=== PATIENT | male | born 1950 | race Caucasian/White ===

== ENCOUNTER 2023-09-21 11:13 | Emergency (ER) | payer MEDICARE, OTHER, SELFPAY ==
[2023-09-21 11:27] VITALS: BP 121/71
--- NOTE | 2023-09-21 14:15 | ED.GENMED ---
History of Present Illness
General
Chief Complaint: Head Injury
Source: patient
Exam Limitations: none
Time Seen by Provider: 09/21/23 12:03
Nursing documentation reviewed up to this point in time: agreed with
Travel History
Have you had any contact with someone who has COVID-19?: No
Do you have any symptoms of coronavirus? Fever > 100 degrees, chills, cough, shortness of breath, sore throat, loss of taste or smell, muscle aches, or headache?: No
History of Present Illness
History of Present Illness:
73-year-old male with past medical history of A-fib currently on Eliquis, hypertension, COPD presenting to the emergency department today with concerns of a trip and fall falling backward hitting his elbows back of the head and low back earlier
today. Denies loss of consciousness denies numbness weakness does have some pain to the elbows as well as low back no headache no neck pain.
Past History
Past History
ED Past Medical History: Arrthythmia and HTN
ED Past Surgical History: Orthopedic (Right knee replacement)
Patient has exhibited threatening behavior?: No
PSI?: No
Social History
Tobacco: Smoker
Alcohol: Occasional
Drug: None
Personal:
Living: with family
Employment: Employed
Family History
Family History: Negative CAD
Review of Systems
Review of Systems
Allergies reviewed?: Yes
All Other Systems: ROS reviewed and negative except as documented in HPI and ROS
Phy Exam
Physical Exam
Physical Exam:
GENERAL: Alert , in no apparent distress
EYE: pupils equal and reactive
NECK: Supple, no significant adenopathy.
ENT: o/p clr, mmm.
CARDIAC: Regular rate and rhythm .
LUNGS: Clear breath sounds bilaterally, no acute respiratory distress, no wheezes/rales/rhonchi
ABDOMEN: Soft, without focal tenderness, no r/g, no cvat
NEUROLOGICAL: Alert and oriented, no focal neuro deficits 5 out of 5 upper and lower extremity strength
SKIN: Warm and dry, skin intact.
MUSCULOSKELETAL: Mild pain to the sacral region on the back otherwise no flank pain no CVA tenderness. No edema, well perfused.
PSYCH: Normal and appropriate interaction.
Course
Orders/Labs/Results
Orders:
Orders
09/21/23 11:31
CT Head W/o Iv Contrast Urgent
Comment:
Reason For Exam: head injury 09/20, on Eliquis
09/21/23 12:28
Lumbar Spine, 2 or 3 View [CR Lumbar Spine 2 Or 3 Views] Urgent
Comment:
Reason For Exam: low back pain afet fall
Sacrum/Coccyx 2 View CR [CR Sacrum/coccyx Min 2 View] Urgent
Comment:
Reason For Exam: lbp pain after fall
Vital Signs
Initial and Last Documented VS:
Initial Vital Signs
Temp Pulse Resp BP Pulse Ox
97.7 F 86 18 121/71 95
09/21/23 11:27 09/21/23 11:27 09/21/23 11:27 09/21/23 11:27 09/21/23 11:27
Last Documented Vital Signs
Temp Pulse Resp BP Pulse Ox
97.7 F 86 18 121/71 95
09/21/23 11:27 09/21/23 11:27 09/21/23 11:27 09/21/23 11:27 09/21/23 11:27
MDM/Problems Addressed
MDM/Problems Addressed:
74-year-old male presenting to the emergency department today with concerns of low back discomfort elbow discomfort as well as some mild head pain after trying to sit missing his rollator and hitting the low back elbows and back of the head. Did
not lose consciousness denies numbness denies neck pain mainly with pain and low back. X-ray without emergent findings CT head negative. Good range of motion and strength of the upper extremities. No evidence of acute injury in that regard.
Patient appears stable for outpatient management of likely soft tissue injury. Return precautions given.
*Critical Care Note
Total Time (30-74mins, 75-104mins- exclusive of procedures): Not Applicable
ED Attending Note
-
Portions of this chart may have been created with voice recognition software.� Occasional wrong word or��sound alike� substitutions may have occurred due to the inherent limitations of voice recognition software.
Discharge Plan
Departure
Patient Disposition: Home (Routine Discharge)
Date of Disposition: 09/21/23
Time of Disposition: 14:16
Patient with high blood pressure during this ER visit?: No
Condition: Good
Covid-19: Not Applicable
Discharge Problem:
Fall, Low back pain
Instructions: Wound Care (DC)
Prescriptions:
No Action
atorvastatin [Lipitor] 80 mg Tablet
80 mg PO QPM
aspirin 81 mg Tablet,Delayed Release (Dr/Ec)
81 mg PO DAILY
amitriptyline 25 mg Tablet
25 mg PO HS
magnesium oxide 400 mg (241.3 mg magnesium) Tablet
420 mg PO DAILY
gabapentin 300 mg Capsule
900 mg PO TID
Eliquis 5 mg Tablet
5 mg PO BID
empagliflozin 25 mg Tablet
12.5 mg PO DAILY
furosemide 40 mg Tablet
40 mg PO DAILY Qty: 30 0RF
nicotine 14 mg/24 hr Patch 24 Hour
14 mg transdermal DAILY Qty: 30 0RF
lidocaine [Aspercreme (lidocaine)] 4 % Adhesive Patch,Medicated
1 patch topical HS Qty: 30 0RF
metoprolol succinate 50 mg Tablet Extended Release 24 Hr
50 mg PO DAILY Qty: 30 0RF
sotalol 80 mg Tablet
80 mg PO Q12H Qty: 60 0RF
duloxetine 20 mg Capsule,Delayed Release(Dr/Ec)
20 mg PO DAILY Qty: 30 0RF
oxycodone 5 mg tablet
5 mg PO Q8H PRN (Reason: Pain) Qty: 14 0RF
Referrals:
Mariah Langley CRNP [Family Provider] -
Activity Restrictions/Additional Instructions:
You came to the emergency department today with concerns after a fall. Here you had reassuring evaluation with normal imaging of the low back and head. Please rest and ice over the next few days as symptoms will hopefully improve. Return to the
emergency department for any worsening, new or concerning symptoms.
Interventions
Interventions:
*General Assessment Last Done: 09/21/23 11:27
*Neglect/Abuse Screening Last Done: 09/21/23 12:31
*ED COVID-19 Vaccine History Last Done: 09/21/23 11:27
ED- Neurological Assessment Last Done: 09/21/23 12:30
ED-Skin Assessment Last Done: 09/21/23 12:30
[2023-09-21 14:33] VITALS: BP 161/87
== END 2023-09-21 14:34 | disposition home or self-care (01) ==
LOC: EMR 11:13
PROVIDERS: EMERGENCY PHYSICIAN Emergency Medicine; FAMILY PHYSICIAN Nurse Practitioner
DX: M54.50 Low back pain, unspecified (principal); S09.90XA Unspecified injury of head, initial encounter; W19.XXXA Unspecified fall, initial encounter; F17.200 Nicotine dependence, unspecified, uncomplicated; Z79.01 Long term (current) use of anticoagulants
CPT/HCPCS: 99284; 70450; 72100; 72220

== ENCOUNTER 2024-01-12 08:45 | Emergency (ER) | payer MEDICARE, OTHER, SELFPAY ==
[2024-01-12 08:46] VITALS: BP 169/96
[2024-01-12 09:17] VITALS: BP 163/111
--- NOTE | 2024-01-12 09:18 | ED.GENMED ---
History of Present Illness
General
Chief Complaint: Breathing Problem
Source: patient and spouse
Exam Limitations: none
Time Seen by Provider: 01/12/24 08:54
Nursing documentation reviewed up to this point in time: agreed with
Travel History
Have you had any contact with someone who has COVID-19?: No
Do you have any symptoms of coronavirus? Fever > 100 degrees, chills, cough, shortness of breath, sore throat, loss of taste or smell, muscle aches, or headache?: No
History of Present Illness
History of Present Illness:
73-year-old male with a past medical history of hypertension, atrial fibrillation, COPD who presents to the emergency room with his for evaluation of worsening lower extremity edema and shortness of breath. Patient reports onset of symptoms
couple days ago and they have been constant and worsening since then. He reports increased swelling in both legs along with some weeping from superficial wounds on the left leg. He says that he has had increased shortness of breath particular with
exertion and his notes that she has noticed conversational dyspnea. Denies any chest pain. He denies any significant coughing. Denies any fevers or chills. He denies any GI issues. He denies any other complaints. He is on Eliquis for his
atrial fibrillation also takes Lasix reports compliance with all medication.
Past History
Past History
ED Past Medical History: Arrthythmia and HTN
ED Past Surgical History: Orthopedic (Right knee replacement)
Patient has exhibited threatening behavior?: No
PSI?: No
Social History
Tobacco: Smoker
Alcohol: Occasional
Drug: None
Personal:
Living: with family
Employment: Employed
Family History
Family History: Negative CAD
Review of Systems
Review of Systems
All Other Systems: ROS reviewed and negative except as documented in HPI and ROS
Constitutional: Denies fever or chills
Respiratory: Reports trouble breathing; Denies cough
Cardiac: Denies chest pain, diaphoresis or palpitations
ABD/GI: Denies abdominal pain, nausea, vomiting or diarrhea
: Denies flank pain
Musculoskeletal: Reports edema
Neurological: Denies dizzy or headache
Phy Exam
Physical Exam
Physical Exam:
General: Awake, alert, oriented x3; no acute distress
Head: Normocephalic, atraumatic
Eyes: Conjunctiva normal
Throat: Airway intact, handling secretions
Neck: Trachea midline, no JVD
Lungs: Normal respiratory rate, normal pulse ox, normal work of breathing; faint scattered wheezing
Heart: Tachycardic with ostensibly regular rhythm, no murmurs, gallops, or rubs
Abd: Soft, non distended, nontender
Neuro: No gross deficits
Skin: Minor superficial ulcerations on left anterior hall; rim of erythema around left anterior hall ulcer and some slight warmth but no induration or crepitus; chronic venous stasis changes in the legs with some erythema
Extremities: +2 pitting edema bilateral lower extremities; extremities are warm and well-perfused
Scores
Heart Failure Risk
Heart Failure Risk Score: Not Applicable
Heart Score for Chest Pain Patients
STEMI patient?: Not applicable
Withdrawal Assessment of Alcohol
Withdrawal Assessment Completed?: Not applicable
Course
Orders/Labs/Results
Orders:
Orders
01/12/24 08:56
Electrocardiogram (*1) Urgent
Reason for Study: Shortness of Breath
EKG- Treatment ONCE
CR Chest - 2 Views Urgent
Comment:
Reason For Exam: sob
01/12/24 09:18
Complete Blood Count/With Diff Urgent
Comprehensive Metabolic Panel Urgent
NT-proBNP Urgent
01/12/24 09:47
Electrocardiogram (*1) Urgent
Reason for Study: Shortness of Breath
Other Reason for Exam: repeat
01/12/24 09:48
EKG- Treatment ONCE
01/12/24 10:43
Ipratropium/Albuterol Sulfate [Duoneb] 3 ml INH R NOW ONE
MethylPREDNISolone PF [Solu-Medrol Pf] 125 mg IV NOW STA
Abnormal Lab Results
01/12/24
09:18
WBC 11.1 H 10^3/uL
(4.8-10.8)
RDW 15.4 H %
(11.5-14.5)
MPV 10.7 H fL
(7.4-10.4)
Abs Immat Gran (auto) 0.1 H 10^3/uL
(0-0.05)
Absolute Neuts (auto) 9.1 H 10^3/uL
(1.4-6.5)
Absolute Lymphs (auto) 0.9 L 10^3/uL
(1.2-3.4)
Absolute Monos (auto) 0.8 H 10^3/uL
(0.1-0.6)
Neutrophils % 82.3 H %
(42.2-75.2)
Lymphocytes % 8.0 L %
(20.5-51.1)
BUN 24 H mg/dl
(9-20)
Glucose 123 H mg/dl
(70-99)
Alkaline Phosphatase 138 H U/L
(38-126)
01/12/24 09:18
01/12/24 09:18
Vital Signs
Initial and Last Documented VS:
Initial Vital Signs
Temp Pulse Resp BP Pulse Ox
36.5 C 110 20 169/96 95
01/12/24 08:46 01/12/24 08:46 01/12/24 08:46 01/12/24 08:46 01/12/24 08:46
Last Documented Vital Signs
Temp Pulse Resp BP Pulse Ox
36.5 C 108 11 131/92 93
01/12/24 08:46 01/12/24 10:30 01/12/24 10:30 01/12/24 10:22 01/12/24 10:30
MDM/Problems Addressed
Differential Diagnosis Includes:
Leg swelling: CHF exacerbation, dependent edema, cellulitis, DVT/PE less likely as patient is on Eliquis noncompliant
Shortness of breath: CHF exacerbation, COPD exacerbation, pneumonia, PE less likely as above
MDM/Problems Addressed:
73-year-old male with history as above presents for evaluation of worsening leg swelling and shortness of breath over the past few days. Also having some weeping from his legs. Vital signs significant for hypertension and tachycardia. Physical
exam as above. Will place an IV check labs including a CBC and a CMP, proBNP. Will check chest x-ray and EKG. Monitor closely reassess after the above.
Labs reviewed: CBC shows marginal leukocytosis to 11.1; CMP no clinically significant abnormalities. BNP is slightly elevated at 830. Chest x-ray shows no pulmonary edema or other acute pathology. While he does have a slight elevation of his BNP
he has no edema on his chest x-ray, no JVD�somewhat lower suspicion for acute CHF or if this is acute CHF likely very mild. He does have some faint scattered wheezing and a known history of COPD and continues to smoke a pack a day�suspect at this
point COPD is more likely because of his increased shortness of breath will treat with a steroid and DuoNeb. His leg swelling could be dependent edema, very mild CHF, or an early cellulitis although suspect this is somewhat less likely given
symmetric swelling and absence of wounds on the right leg. Nevertheless I do not think it would be unreasonable to cover him with short course of antibiotics in case there is a developing cellulitis in his leg.
Patient is feeling better after DuoNeb and steroid. Will plan to treat for COPD exacerbation with few days of steroids and albuterol which he has at home. Will cover with short course of antibiotics as above. I also advised him to take an extra
dose of his diuretic at home for the next 2 days to help with leg swelling in case this is early CHF. He has a follow-up appointment this Thursday and will be reassessed at that point. I think he is stable for discharge with close outpatient
follow-up plan. He is very comfortable with this as well. We spoke about return precautions and all questions were answered.
Chronic conditions affecting care:
Atrial fibrillation, hypertension
Acute Exacerbation and/or Progression of Chronic Illness:
Acutely hypertensive
Acute Exacerbation and/or Progression of Chronic Illness: HTN
*Radiology
Radiology exam reviewed: preliminary read by ED provider and radiology read reviewed
*Pulse Oximetry
Patient hypoxic: no
*Critical Care Note
Total Time (30-74mins, 75-104mins- exclusive of procedures): Not Applicable
Data Reviewed
Review of Other/Old Records Reveals: Labs and Records
Source: patient and spouse
ED Attending Note
-
Portions of this chart may have been created with voice recognition software.� Occasional wrong word or��sound alike� substitutions may have occurred due to the inherent limitations of voice recognition software.
Discharge Plan
Departure
Prescriptions:
No Action
magnesium oxide 400 mg (241.3 mg magnesium) Tablet
420 mg PO DAILY
furosemide 40 mg Tablet
40 mg PO DAILY Qty: 30 0RF
duloxetine 20 mg Capsule,Delayed Release(Dr/Ec)
20 mg PO DAILY Qty: 30 0RF
metformin 500 mg Tablet
500 mg PO BID
nicotine (polacrilex) 2 mg Gum
2 mg BUCCAL Q2H PRN (Reason: smoking urge)
capsaicin 0.025 % Cream
1 applic TOPICAL QID PRN (Reason: .as directed)
pregabalin 75 mg Capsule
75 mg PO TID
sacubitril-valsartan 97-103 mg Tablet
1 tab PO BID
Referrals:
Mariah Langley CRNP [Family Provider] -
Interventions
Interventions:
*Risk Screen - Suicide Last Done: 01/12/24 08:46
*General Assessment Last Done: 01/12/24 08:46
*Neglect/Abuse Screening Last Done: 01/12/24 08:46
ED- Fall Risk Assessment Last Done: 01/12/24 09:48
*ED COVID-19 Vaccine History Last Done: 01/12/24 08:55
ED- Cardiac Assessment Last Done: 01/12/24 09:09
ED- Pulmonary Assessment Last Done: 01/12/24 09:09
ED-Skin Assessment Last Done: 01/12/24 09:09
Discharge Date and Time
Print Language: UKRAINIAN
[2024-01-12 09:30] LABS: % Eosinophils 0.9 % (0-6); % Immature Granulocytes 0.5 % (0-0.5); % Monocytes 7.3 % (1.7-9.3); % Neutrophils 82.3 % (42.2-75.2); Absolute Basophils 0.1 10^3/uL (0-0.2); Absolute Eosinophils 0.1 10^3/uL (0-0.7); Absolute Immature Granulocytes 0.1 10^3/uL (0-0.05); Absolute Lymphocytes 0.9 10^3/uL (1.2-3.4); Absolute Monocytes 0.8 10^3/uL (0.1-0.6); Absolute Neutrophils 9.1 10^3/uL (1.4-6.5); Hemoglobin 15.6 g/dL (13.0-18.0); Mean Corp Hgb Conc. 33.2 g/dL (33.0-37.0); Mean Corpuscular Hgb 30.2 pg (27.0-31.0); Mean Corpuscular Volume 91.1 fL (80.0-94.0); Mean Platelet Volume 10.7 fL (7.4-10.4); Nucleated Red Blood Cells % 0 % (-); Platelet Count 242 10^3/uL (130-400); Red Blood Cell Count 5.16 10^6/uL (4.70-6.10); Red Cell Dist. Width 15.4 % (11.5-14.5); White Blood Cell Count 11.1 10^3/uL (4.8-10.8)
[2024-01-12 09:46] LABS: ALT (SGPT) 16 U/L (0-50); AST (SGOT) 19 U/L (17-59); Albumin 3.5 g/dl (3.5-5.0); Alkaline Phosphatase 138 U/L (38-126); Blood Urea Nitrogen 24 mg/dl (9-20); Calcium 8.8 mg/dl (8.4-10.2); Carbon Dioxide 28 mmol/L (22-30); Chloride 105 mmol/L (98-107); Glucose 123 mg/dl (70-99); Potassium 3.9 mmol/L (3.5-5.1); Sodium 141 mmol/L (135-145); Total Bilirubin 0.7 mg/dl (0.2-1.3); Total Protein 6.7 g/dl (6.3-8.2); eGFR > 60.00
[2024-01-12 09:54] LABS: NT-proBNP 830 pg/ml
[2024-01-12 10:22] VITALS: BP 131/92
[2024-01-12] MEDS: DUONEB 3 ML INH (10:46)
[2024-01-12] MEDS: SOLU-MEDROL PF 125 MG IV (10:47)
[2024-01-12 11:01] VITALS: BP 123/87
[2024-01-12] MEDS: KEFLEX 500 MG PO (11:32)
== END 2024-01-12 12:10 | disposition home or self-care (01) ==
LOC: EMR 08:45
PROVIDERS: EMERGENCY PHYSICIAN Emergency Medicine; FAMILY PHYSICIAN Nurse Practitioner
DX: R60.0 Localized edema (principal); R06.02 Shortness of breath; I10 Essential (primary) hypertension; I48.91 Unspecified atrial fibrillation; J44.9 Chronic obstructive pulmonary disease, unspecified; F17.210 Nicotine dependence, cigarettes, uncomplicated; Z79.01 Long term (current) use of anticoagulants; Z96.651 Presence of right artificial knee joint; Z91.030 Bee allergy status
CPT/HCPCS: 99285; 96374; 94640; 71046; 80053; 83880; 85025; 93005

== ENCOUNTER 2024-08-18 21:02 | Inpatient (IN) | payer MEDICARE, OTHER, SELFPAY ==
[2024-08-18] VITALS (8 sets, daily range): BP systolic 151–167; BP diastolic 98–119; BMI 35.8
[2024-08-18 15:36] LABS: % Basophils 0.7 % (0-2); % Eosinophils 0.8 % (0-6); % Immature Granulocytes 0.3 % (0-0.5); % Lymphocytes 10.9 % (20.5-51.1); % Monocytes 7.2 % (1.7-9.3); % Neutrophils 80.1 % (42.2-75.2); Absolute Basophils 0.1 10^3/uL (0-0.2); Absolute Eosinophils 0.1 10^3/uL (0-0.7); Absolute Lymphocytes 1.2 10^3/uL (1.2-3.4); Absolute Monocytes 0.8 10^3/uL (0.1-0.6); Absolute Neutrophils 8.6 10^3/uL (1.4-6.5); Hematocrit 50.3 % (39.0-52.0); Hemoglobin 16.5 g/dL (13.0-18.0); Mean Corp Hgb Conc. 32.8 g/dL (33.0-37.0); Mean Corpuscular Hgb 30.3 pg (27.0-31.0); Mean Corpuscular Volume 92.5 fL (80.0-94.0); Mean Platelet Volume 10.5 fL (7.4-10.4); Nucleated Red Blood Cells % 0 % (-); Platelet Count 237 10^3/uL (130-400); Red Blood Cell Count 5.44 10^6/uL (4.70-6.10); Red Cell Dist. Width 15.6 % (11.5-14.5); White Blood Cell Count 10.8 10^3/uL (4.8-10.8)
[2024-08-18 15:46] LABS: ALT (SGPT) 22 U/L (0-50); AST (SGOT) 21 U/L (17-59); Albumin 4.1 g/dl (3.5-5.0); Alkaline Phosphatase 160 U/L (38-126); Blood Urea Nitrogen 26 mg/dl (9-20); Calcium 8.7 mg/dl (8.4-10.2); Carbon Dioxide 25 mmol/L (22-30); Chloride 103 mmol/L (98-107); Glucose 109 mg/dl (70-99); Potassium 4.1 mmol/L (3.5-5.1); Sodium 140 mmol/L (135-145); Total Bilirubin 0.7 mg/dl (0.2-1.3); Total Protein 7.4 g/dl (6.3-8.2); eGFR > 60.00
[2024-08-18 15:58] LABS: NT-proBNP 1420 pg/ml; Troponin I 0.033 ng/ml
--- NOTE | 2024-08-18 19:29 | ED.GENMED ---
History of Present Illness
General
Chief Complaint: Breathing Problem
Source: patient
Exam Limitations: none
Time Seen by Provider: 08/18/24 19:29
Nursing documentation reviewed up to this point in time: agreed with
History of Present Illness
History of Present Illness:
73-year-old male with past medical history of A-fib on Eliquis, COPD, hypertension presents emergency department today with concerns of shortness of breath for the past week. Patient reports that he has been using his albuterol inhaler at home
without relief. Patient has associated increasing cough and change in character of his sputum. He denies any hemoptysis. He also notes a sore sore throat which has been going on for a few weeks now but denies any trouble swallowing. He denies
any fevers or chills. Patient states that is been getting progressively worse over the past week and he can barely walk without significant shortness of breath. He denies any chest pain. He has not been in contact with anyone sick. He denies any
recent travel.
Past History
Past History
ED Past Medical History: Arrthythmia and HTN
ED Past Surgical History: Orthopedic (Right knee replacement)
Patient has exhibited threatening behavior?: No
PSI?: No
Social History
Tobacco: Smoker
Alcohol: Occasional
Drug: None
Personal:
Living: with family
Employment: Employed
Family History
Family History: Negative CAD
Review of Systems
Review of Systems
All Other Systems: ROS reviewed and negative except as documented in HPI and ROS
Phy Exam
Physical Exam
Physical Exam:
General: Patient is well appearing and in no acute distress; non-toxic
Skin: Warm and dry, no rashes or lesions
Head: Normocephalic, atraumatic
Eyes: Sclera non-icteric. EOMs intact. PERRLA.
Cardiac: Regular rate and rhythm, no murmurs
Peripheral Vascular: No lower extremity swelling or edema
Pulm: Increased respiratory effort, conversational dyspnea noted, tripoding, diffuse wheezing heard throughout
Abdomen: No abdominal tenderness to palpation
Neuro: CN II-XII intact, no focal neurologic deficits.
Psychiatric: Appropriate mood and affect.
Scores
Heart Failure Risk
Heart Failure Risk Score: Not Applicable
Course
Orders/Labs/Results
Orders:
Orders
08/18/24 15:07
Electrocardiogram (*1) Urgent
Reason for Study: Shortness of Breath
EKG- Treatment ONCE
CXR2 [CR Chest - 2 Views ] Urgent
Comment:
Reason For Exam: sob
08/18/24 15:15
Complete Blood Count/With Diff Urgent
Comprehensive Metabolic Panel Urgent
NT-proBNP Urgent
Troponin I Urgent
08/18/24 19:58
Cardiac Monitoring- Treatment ONCE
Dexamethasone Sod Phosphate [Decadron] 10 mg IV NOW STA
Ipratropium/Albuterol Sulfate [Duoneb] 3 ml INH R NOW ONE
08/18/24 20:00
Ipratropium/Albuterol Sulfate [Duoneb] 3 ml INH R NOW STA
08/18/24 20:04
CefTRIAXone [Rocephin] 1,000 mg IV NOW STA
Doxycycline [Vibramycin] 100 mg PO NOW STA
08/18/24 20:11
COVID-19 Antigen Urgent
Source: Nasal Swab
Influenza A+B Rapid Molecular Urgent
ADRIANA Source: Nasal Swab
Specimen Description:
08/18/24 20:31
Admit/Transfer Patient As Directed
Co-Sign Provider:
Level of Care: Inpatient admission
Assign to:: Telemetry
Physician / Group: Jeanne Solano
Diagnosis: Acute COPD Exacerbation
Reason for Telemetry: Chest Pain syndromes
Date to Stop Telemetry: 08/20/24
Time to Stop Telemetry: 11:00
Reason for Hospitalization: Acute COPD Exacerbation; hypoxic resp insufficiency
Expected length of stay greater than two midnights?: Yes
ELOS- Estimated Length of Stay in days: 3
I certify the patient meets the requirements for IP care: Yes
PRN Pain Medication Management As Directed
May give lesser potent ordered pain med per pt: Yes
preference::
Protocol:: Medication orders for pain may be administered in a
manner that supports deferring to patient preference
when the pt is:
- Requesting an ordered lesser potent pain medication.
Least to most potent pain medications are defined
as: acetaminophen < NSAID < tramadol < opioids
(morphine, oxycodone, hydromorphone).
- Requesting a lesser dose of the same medication IF
ORDERED.
- Requesting a less intrusive route of administration
if both routes are prescribed by the provider (PO <
IV).
08/18/24 20:32
Code Status As Directed
Resuscitation Status: Do not resuscitate
Reached after discussion with pt or family/Healthcare POA: Yes
08/18/24 20:33
DNR Bracelet Application ONCE
08/18/24 20:53
Apixaban [Eliquis] 5 mg PO NOW STA
08/20/24 11:00
DC Protocol for Telemetry ONCE
Abnormal Lab Results
08/18/24
15:15
MCHC 32.8 L g/dL
(33.0-37.0)
RDW 15.6 H %
(11.5-14.5)
MPV 10.5 H fL
(7.4-10.4)
Absolute Neuts (auto) 8.6 H 10^3/uL
(1.4-6.5)
Absolute Monos (auto) 0.8 H 10^3/uL
(0.1-0.6)
Neutrophils % 80.1 H %
(42.2-75.2)
Lymphocytes % 10.9 L %
(20.5-51.1)
BUN 26 H mg/dl
(9-20)
Glucose 109 H mg/dl
(70-99)
Alkaline Phosphatase 160 H U/L
(38-126)
08/18/24 15:15
08/18/24 15:15
Vital Signs
Initial and Last Documented VS:
Initial Vital Signs
Temp Pulse Resp BP Pulse Ox
97.8 F 99 16 151/105 98
08/18/24 15:05 08/18/24 15:05 08/18/24 15:05 08/18/24 15:05 08/18/24 15:05
Last Documented Vital Signs
Temp Pulse Resp BP Pulse Ox
97.8 F 101 34 167/113 95
08/18/24 15:05 08/18/24 20:03 08/18/24 20:03 08/18/24 20:15 08/18/24 20:03
MDM/Problems Addressed
Differential Diagnosis Includes:
See below
MDM/Problems Addressed:
NUMBER AND COMPLEXITY OF PROBLEMS ADDRESSED AT THE ENCOUNTER
� Chronic conditions affecting care: COPD, A-fib on Eliquis, hypertension
� Acute Exacerbation and/or Progression of Chronic Illness:
� Differential Diagnosis includes: COPD exacerbation secondary to hyper viral syndrome, pneumonia, ACS, PE
AMOUNT AND/OR COMPLEXITY OF DATA TO BE REVIEWED AND ANALYZED
� I performed an independent evaluation of and my interpretation is:
EKG: Sinus tachycardia noted with left axis deviation, rate 102, right bundle branch block
X-rays: Bilateral infiltrates noted
Laboratory Studies: No leukocytosis, normal kidney function
Other:
� Review of other/old records: Reviewed previous ER physician documentation from 01/08/2024, patient seen for COPD exacerbation
� Clinical information was obtained by an independent historian: present who helped provide history
� Prescriptions/Medications Considered but not given: none
� Further testing considered but not performed: n/a
RISK OF COMPLICATIONS AND/OR MORBIDITY OR MORTALITY OF PATIENT MANAGEMENT
� Social determinants of health affecting care: none
� Discussion with other providers: ER attending
� Escalation of care including admission/observation vs risk of discharge considered:
73-year-old male presents emergency department today with concerns of shortness of breath. He has a history of COPD. Is been getting progressively worse. He has noticed a change in his sputum. He has diffuse wheezing heard throughout. He is
hypoxic to 90% on room air. He was started on 2 L of oxygen via nasal cannula. Patient states that he does not wear oxygen at home and is never required oxygen before. Chest x-ray shows findings concerning for atelectasis versus pneumonia, I
think patient's clinical presentation is more consistent with pneumonia in light of his sputum changes as well as his sore throat and spectrum of illness. Patient will be admitted, case discussed with hospitalist, patient started on antibiotics.
*Critical Care Note
Total Time (30-74mins, 75-104mins- exclusive of procedures): Not Applicable
ED Attending Note
-
Portions of this chart may have been created with voice recognition software.� Occasional wrong word or��sound alike� substitutions may have occurred due to the inherent limitations of voice recognition software.
Discharge Plan
Interventions
Interventions:
*Risk Screen - Suicide Last Done: 08/18/24 15:05
*General Assessment Last Done: 08/18/24 19:59
*Neglect/Abuse Screening Last Done: 08/18/24 15:05
ED- Fall Risk Assessment Last Done: 08/18/24 19:59
*ED COVID-19 Vaccine History Last Done: 08/18/24 19:59
ED- Cardiac Assessment Last Done: 08/18/24 19:59
ED- Pulmonary Assessment Last Done: 08/18/24 19:59
--- NOTE | 2024-08-18 20:11 | HPS.HSE ---
Addendum entered and electronically signed by Jeanne Solano MD 08/18/24 20:55:
will start GI PPx while patient on steroids and Eliquis
Addendum entered and electronically signed by Jeanne Solano MD 08/18/24 20:54:
*confirmed with , patient takes Eliquis at home - ordered.
Original Note:
Family Physician
-
Family Physician: Mariah Langley
Chief Complaint
-
cough and shortness of breath
History of Present Illness
Mr. Damon Holman is a 73 yo man with hx HTN, atrial fibrillation, COPD, 1PPD smoker presents to the ER with cough and shortness of breath.
He states that he has had increasing productive cough over past 2 weeks. When asked how long he has felt short of breath he states it goes and off for a while but today was acutely worse. He denies fevers, + chills. states cough is sometimes
productive. no chest pain. No nausea/vomiting/diarrhea. chronic b/l LE swelling. He has albuterol at home, does not take long acting inhalers.
Patient usually receives outpatient care at [facility].
Medical History
Past Medical History
Past Medical History: Reports Arrhythmia (Prx AF ), HTN and Hypercholesterolemia
Past Surgical History: Reports Orthopedic (Right knee replacement))
Social History
Alcohol: Occasional
Drug: None
Family History
Family History: Not pertinent
Allergies / Home Medications
Allergies reflects when Allergies were last updated in [facility].
Home Medications with original date entered in [facility]
Allergy/Medication List:
Allergies
Allergy/AdvReac Type Severity Reaction Status Date / Time
bee venom protein (honey bee) Allergy Anaphylaxis Verified 08/18/24 15:06
Home Medications
magnesium oxide 400 mg (241.3 mg magnesium) tablet 420 mg PO DAILY Supplement 08/29/22
duloxetine 20 mg capsule,delayed release 20 mg PO DAILY #30 caps 10/10/22
furosemide 40 mg tablet 40 mg PO DAILY #30 tabs 10/10/22
albuterol sulfate 90 mcg/actuation aerosol inhaler 2 puff inhalation Q6H PRN shortness of breath or wheezing #6.7 grams 01/12/24
capsaicin 0.025 % topical cream 1 applic topical QID PRN .as directed 01/12/24
cephalexin 500 mg tablet 500 mg PO QID 7 days #28 tabs 01/12/24
metformin 500 mg tablet 500 mg PO BID 01/12/24
nicotine (polacrilex) 2 mg gum 2 mg buccal Q2H PRN smoking urge 01/12/24
prednisone 50 mg tablet 50 mg PO DAILY #4 tabs 01/12/24
pregabalin 75 mg capsule 75 mg PO TID 01/12/24
sacubitril 97 mg-valsartan 103 mg tablet 1 tab PO BID 01/12/24
Review of Systems
-
History Source: Patient
A 12 point ROS was completed and negative except as noted: Yes
Physical Exam
Vital Signs
Vital Signs
Temp Pulse Resp BP Pulse Ox
97.8 F 99 16 151/105 95
08/18/24 15:05 08/18/24 15:05 08/18/24 15:05 08/18/24 15:05 08/18/24 19:59
Physical Exam
General: Obese and Other (conversant, mildly tachypneic )
HEENT: PERRLA
Respiratory: Wheezes
Cardiac: S1/S2 and Regular Rhythm
GI: Soft and Non Tender
Musculoskeletal: No Edema
Skin: Warm and Dry; No Rash
Neuro: AO x 3
Psych: Calm
Laboratory Results
-
08/18/24 15:15
08/18/24 15:15
Laboratory Results
Total Bilirubin 0.7 mg/dl (0.2-1.3) 08/18/24 15:15
AST 21 U/L (17-59) 08/18/24 15:15
ALT 22 U/L (0-50) 08/18/24 15:15
Alkaline Phosphatase 160 U/L (38-126) H 08/18/24 15:15
Troponin I 0.033 ng/ml 08/18/24 15:15
Data Reviewed
-
Diagnostic Radiology: Report Reviewed by me
Lab Data: Labs Reviewed by me
Impression/Plan
-
Mr. Damon Holman is a 73 yo man with hx HTN, atrial fibrillation, COPD, 1 PPD smoker presents to the ER with cough and shortness of breath, found to have COPD exacerbation and concern for PNA.
Triage VS: T 97.8, P 99, RR 16, BP 151/105, SpO2 98%
LABS: Na 140, K+ 4.1, Cl 103, BUN 26, Cr 1.2, Glucose 109, liver enzymes WNL, BNP 1420, Trop 0.033, WBC 10.8, Hg 16.5, PLT 237
CXR
IMPRESSION:
Bibasilar atelectasis and/or pneumonia.
MAR: duonebs, Decadron 10mg, IV Ceftriaxone/Doxy
Acute COPD Exacerbation
Community Acquired Pneumonia
Hypoxic Respiratory Insufficiency
-admit to telemetry
-O2 support as needed
-F/U Flu/Covid testing
-continue Cef/Doxy
-IV Decadron
-Duonebs
-Mucinex
-Acapella
Atrial Fibrillation
-* left - I called to see if patient is on a blood thinner, he does not know
Essential HTN
-UNATTENDED GROUND SENSOR SPECIALIST Entresto
-patient is unsure if he is on another medication
DM
-UNATTENDED GROUND SENSOR SPECIALIST Metformin
-ISS
-UNATTENDED GROUND SENSOR SPECIALIST Pregabalin
DVT PPx - lovenox subQ - start home OAC if he takes - will call back later
DNR
76 minutes spent on patient care
[2024-08-18 20:46] LABS: COVID-19 Antigen Negative (Negative)
[2024-08-18] MEDS: DUONEB 3 ML INH ×2 (21:17→21:37)
[2024-08-18] MEDS: ELIQUIS 5 MG PO (21:20)
[2024-08-18] MEDS: VIBRAMYCIN 100 MG PO (21:20)
[2024-08-18] MEDS: DECADRON 10 MG IV (21:27)
[2024-08-18] MEDS: ROCEPHIN 1000 MG IV (21:30)
[2024-08-18] MEDS: FLUSH (NSS) 1 FLUSH IV (21:38)
[2024-08-19] VITALS (8 sets, daily range): BP systolic 131–156; BP diastolic 78–103; PULSE 105; O2SAT 95; BMI 36.2
[2024-08-19] MEDS: PROTONIX 40 MG PO ×2 (00:53→08:25)
[2024-08-19] MEDS: GLUCOPHAGE 500 MG PO ×3 (00:53→20:19)
[2024-08-19] MEDS: ELAVIL 25 MG PO ×2 (00:53→20:19)
[2024-08-19] MEDS: MUCINEX 600 MG PO ×3 (00:53→20:19)
[2024-08-19] MEDS: LIPITOR 80 MG PO ×2 (00:53→20:40)
[2024-08-19] MEDS: LYRICA 75 MG PO ×4 (00:53→20:19)
[2024-08-19] MEDS: ENTRESTO 97 MG/103 MG 1 TAB PO ×3 (01:10→20:18)
[2024-08-19] MEDS: DECADRON 4 MG IV ×3 (05:05→20:20)
[2024-08-19 06:26] LABS: Glucose - Point of Care 136 mg/dl (70-99)
[2024-08-19 07:33] LABS: Glucose - Point of Care 157 mg/dl (70-99)
[2024-08-19 07:46] LABS: % Basophils 0.3 % (0-2); % Immature Granulocytes 0.4 % (0-0.5); % Lymphocytes 4.8 % (20.5-51.1); % Monocytes 0.6 % (1.7-9.3); % Neutrophils 93.9 % (42.2-75.2); Absolute Lymphocytes 0.3 10^3/uL (1.2-3.4); Absolute Neutrophils 6.5 10^3/uL (1.4-6.5); Hematocrit 47.9 % (39.0-52.0); Hemoglobin 15.9 g/dL (13.0-18.0); Mean Corp Hgb Conc. 33.2 g/dL (33.0-37.0); Mean Corpuscular Hgb 30.2 pg (27.0-31.0); Mean Corpuscular Volume 91.1 fL (80.0-94.0); Mean Platelet Volume 10.2 fL (7.4-10.4); Nucleated Red Blood Cells % 0 % (-); Platelet Count 244 10^3/uL (130-400); Red Blood Cell Count 5.26 10^6/uL (4.70-6.10); Red Cell Dist. Width 15.4 % (11.5-14.5); White Blood Cell Count 6.9 10^3/uL (4.8-10.8)
[2024-08-19] MEDS: PACERONE 100 MG PO (08:24)
[2024-08-19] MEDS: CYMBALTA DELAYED RELEASE 20 MG PO (08:25)
[2024-08-19] MEDS: ELIQUIS 5 MG PO ×2 (08:25→20:18)
[2024-08-19] MEDS: LASIX 40 MG PO (08:25)
[2024-08-19] MEDS: NICODERM TRANSDERMAL 21 MG TRANSDERM (08:25)
[2024-08-19] MEDS: CARDURA 8 MG PO (08:25)
[2024-08-19] MEDS: VIBRAMYCIN 100 MG PO ×2 (08:25→20:19)
[2024-08-19] MEDS: DUONEB INH (08:28)
[2024-08-19 08:35] LABS: Blood Urea Nitrogen 24 mg/dl (9-20); Calcium 8.3 mg/dl (8.4-10.2); Carbon Dioxide 23 mmol/L (22-30); Chloride 105 mmol/L (98-107); Estimated Creatinine Clearance 84 ml/min; Glucose 158 mg/dl (70-99); Potassium 4.5 mmol/L (3.5-5.1); Sodium 140 mmol/L (135-145); eGFR > 60.00
[2024-08-19] MEDS: NOVOLOG FLEXPEN-LOW RESISTANCE SC ×3 (08:39→16:29)
[2024-08-19 10:39] LABS: Glycohemoglobin (HgbA1c) 6.1 % (4.0-5.6)
[2024-08-19] MEDS: DUONEB 3 ML INH ×3 (12:18→19:21)
[2024-08-19 12:28] LABS: Glucose - Point of Care 185 mg/dl (70-99)
--- NOTE | 2024-08-19 13:10 | W.PN.HOSP.TC ---
Today's Communication/Plan
-
Continue steroids
Watch blood sugar
Wean oxygen as tolerated
Continue antibiotics
Assessment / Plan
Assessment / Plan
73-year-old man with cough and shortness of breath.
CVS: S1-S2 normal
Chest: B/L wheezes.
Abdomen: Soft, NT / Bowel sounds present
Extremities: No edema, normal pulses
Ulcer NOS on left hall, right medial calf-covered with gauze
# Community-acquired pneumonia
COPD exacerbation
Acute hypoxic respiratory insufficiency secondary to above-wean as tolerated
Continue oxygen and wean as tolerated
Continue ceftriaxone doxycycline
IV Decadron
Mucinex, nebulizer treatments
Speech eval
Acapella
# Paroxysmal atrial fibrillation
Continue amiodarone, Eliquis
Sees Dr Shah at [facility]
# Diabetes-continue metformin and sliding scale
HbA1C- 6.1
Watch sugars while on steroids
# CHF-type unknown. Ejection fraction was normal in October 2022-continue Entresto, Lasix
Patient was also on a beta-rickey and SGLT2 inhibitor at that time-not on that now per med list
Significant other will find out from PCP or cardiology by he is not on metoprolol and empagliflozin now
# Prostate disease-continue doxazosin
# Hyperlipidemia/atherosclerosis-continue statin
# History of pericardial effusion
# Smoker-cessation counseling
# Obesity per BMI
# DVT prophylaxis-Eliquis
# DNR
Spoke to Significant other and updated. She has been trying to get him to quit smoking.
Anticipated Discharge: 24 - 48 hours
Subjective/Interval History
-
Date of Service: August 19, 2024
Objective Data
-
Labs:
Laboratory Results
08/19/24
07:10
WBC 6.9
Hgb 15.9
Hct 47.9
Plt Count 244
Sodium 140
Potassium 4.5
Chloride 105
Carbon Dioxide 23
BUN 24 H
Creatinine 1.1
Glucose 158 H
Calcium 8.3 L
Vital Signs:
Vital Signs
Temp Pulse Resp BP Pulse Ox
98 F 98 20 131/93 97
08/19/24 11:36 08/19/24 11:36 08/19/24 11:36 08/19/24 11:36 08/19/24 11:36
I&O
08/18/24 08/19/24 08/20/24
06:59 06:59 06:59
Intake Total 480 / 480
Balance 480 / 480
--- NOTE | 2024-08-19 13:26 | PTOTSP ---
SPEECH THERAPY SWALLOW EVALUATION:
Patient exhibits grossly functional oropharyngeal swallow at bedside. However, patient with complaints suspicious for pharyngeal dysphagia of unknown etiology (occasional coughing while eating/drinking, occasional globus sensation with solids,
progressive vocal quality changes, occasional odynophagia and pain while talking). Patient reported this is first pneumonia. Chronic dysphagia/aspiration risk factors including history of COPD. Patient with history of vocal polyp removal ~7-10 years
ago. Patient remains at risk for aspiration and related complications due to tenuous respiratory/pulmonary status. No overt signs of aspiration noted at this time, however unable to rule out aspiration at bedside. Patient appears safe to continue
oral diet at this time while implementing aspiration precautions given intact cognition. Recommend Regular texture diet, thin liquids. Medications whole with liquids as best tolerated. Aspiration precautions: Upright positioning; Small single
sips/bites; Slow rate of intake; Do not eat when short of breath; Chew thoroughly; Reduce distractions while eating/drinking; Take breaks for breathing; No talking while eating/drinking; Monitor for signs of aspiration and d/c oral diet if any
decline in mental/respiratory status. Oral care 3x/day and increased mobility as able/tolerated to reduce risk for nosocomial infections. Recommend instrumental assessment of swallowing via VSE (would be appropriate as Inpatient or as Outpatient at
[facility] as patient reported he would prefer this) and/or FEES at the Outpatient setting where available. Recommend ENT consult to further assess progressive vocal quality changes. Recommend ST to follow at the acute care level, assess diet tolerance and
modify as appropriate, provide continued diagnostic swallow therapy as appropriate, and continue plan of care pending instrumental swallowing study results.
RECOMMEND:
1) VSE (would be appropriate as Inpatient or as Outpatient at [facility] as patient reported he would prefer this) and/or FEES at the Outpatient setting where available
2) ENT consult
3) Regular texture diet, thin liquids
4) Medications whole with liquid as best tolerated
5) Aspiration/COPD precautions: Upright positioning; Small single sips/bites; Slow rate of intake; Do not eat when short of breath; Chew thoroughly; Reduce distractions while eating/drinking; Take breaks for breathing; No talking while
eating/drinking; Monitor for signs of aspiration and d/c oral diet if any decline in mental/respiratory status.
6) Oral care 3x/day
7) ST to follow at the acute care level
[2024-08-19] MEDS: TYLENOL 650 MG PO (15:14)
[2024-08-19 16:25] LABS: Glucose - Point of Care 213 mg/dl (70-99)
[2024-08-19] MEDS: STERILE WATER FOR INJECTION 10 ML IV (17:02)
[2024-08-19] MEDS: ROCEPHIN 1000 MG IV (17:02)
[2024-08-19 21:16] LABS: Glucose - Point of Care 229 mg/dl (70-99)
[2024-08-19] MEDS: MELATONIN 5 MG PO (22:04)
[2024-08-20 03:25] VITALS: BP 123/78
[2024-08-20] MEDS: DECADRON 4 MG IV ×2 (04:43→20:19)
--- NOTE | 2024-08-20 05:59 | W.PN.HOSP.TC ---
Today's Communication/Plan
-
cont abx
bronchodilators
wean oxygen supplementation as tolerated
taper steroids
glycemic control
Incentive spirometer
Acapella
Assessment / Plan
Assessment / Plan
Physical Exam
General: no acute distress, appears comfortable at this time
HEENT: normocephalic atraumatic
CVS: S1-S2 normal
Chest: clear to auscultation b/l
Abdomen: Soft, NT / Bowel sounds present
Extremities: No edema, normal pulses
derm: Ulcer NOS on left hall, right medial calf-covered with gauze
Neuro: AOx3
Psych: calm
73M HTN afib COPD Tobacco here for COPD/PNA
# Community-acquired pneumonia
COPD exacerbation
Acute hypoxic respiratory insufficiency secondary to above
wean O2 as tolerated
[place] mist nasal spray for dry nostrils d/t oxygen supplementation
Continue ceftriaxone doxycycline
IV Decadron tapered to Q12
Mucinex, nebulizer treatments
Speech eval appreciated
Incentive spirometer Acapella
# Paroxysmal atrial fibrillation
Continue amiodarone, Eliquis
Sees Dr Shah at [facility]
# Diabetes-continue metformin and sliding scale
HbA1C- 6.1 prediabetes level
Watch sugars while on steroids
# CHF-type unknown. Ejection fraction was normal in October 2022-continue home Entresto, Lasix
# Prostate disease-continue doxazosin
# Hyperlipidemia/atherosclerosis-continue statin
# History of pericardial effusion
# Smoker-cessation counseling
# Obesity per BMI
# DVT prophylaxis-Eliquis
# DNR
I spent a total of 50 minutes with the patient or on the floor. More than 50% of this time involved counseling and coordination of care.
Anticipated Discharge: 24 - 48 hours
Subjective/Interval History
-
Date of Service: August 20, 2024
No acute distress. Reports overall improvement in symptoms. Reports dry nostrils from oxygen supplementation, continues to require nasal cannula supplementation.
Objective Data
-
Vital Signs:
Vital Signs
Temp Pulse Resp BP Pulse Ox
97.6 F 97 20 123/78 96
08/20/24 03:25 08/20/24 03:25 08/20/24 03:25 08/20/24 03:25 08/20/24 03:25
I&O
08/18/24 08/19/24 08/20/24
06:59 06:59 06:59
Intake Total 480 / 480 960 / 960
Output Total 1175 / 1175
Balance 480 / 480 -215 / -215
[2024-08-20 07:25] VITALS: BP 136/89
[2024-08-20] MEDS: NOVOLOG FLEXPEN-LOW RESISTANCE SC ×3 (08:00→17:16)
[2024-08-20] MEDS: PROTONIX 40 MG PO (08:03)
[2024-08-20] MEDS: LYRICA 75 MG PO ×3 (08:03→21:37)
[2024-08-20] MEDS: PACERONE 100 MG PO (08:03)
[2024-08-20] MEDS: ELIQUIS 5 MG PO ×2 (08:04→20:19)
[2024-08-20] MEDS: LASIX 40 MG PO (08:04)
[2024-08-20] MEDS: CARDURA 8 MG PO (08:04)
[2024-08-20] MEDS: CYMBALTA DELAYED RELEASE 20 MG PO (08:04)
[2024-08-20] MEDS: MUCINEX 600 MG PO ×2 (08:04→20:19)
[2024-08-20] MEDS: VIBRAMYCIN 100 MG PO ×2 (08:04→20:19)
[2024-08-20] MEDS: NICODERM TRANSDERMAL 21 MG TRANSDERM (08:05)
[2024-08-20] MEDS: ENTRESTO 97 MG/103 MG 1 TAB PO ×2 (08:05→20:17)
[2024-08-20] MEDS: GLUCOPHAGE 500 MG PO ×2 (08:05→20:19)
[2024-08-20] MEDS: DUONEB 3 ML INH ×4 (08:41→19:16)
[2024-08-20 11:33] VITALS: BP 155/92
[2024-08-20 11:50] LABS: Glucose - Point of Care 128 mg/dl (70-99)
[2024-08-20] MEDS: DECADRON IV (14:15)
[2024-08-20] MEDS: OCEAN, SALINE MIST 1 SPRAYS NASAL ×3 (14:32→21:37)
[2024-08-20 15:33] VITALS: BP 131/80
[2024-08-20 16:57] LABS: Glucose - Point of Care 110 mg/dl (70-99)
[2024-08-20] MEDS: STERILE WATER FOR INJECTION 10 ML IV (18:11)
[2024-08-20] MEDS: ROCEPHIN 1000 MG IV (18:12)
[2024-08-20 19:36] VITALS: BP 122/77
[2024-08-20 21:31] LABS: Glucose - Point of Care 156 mg/dl (70-99)
[2024-08-20] MEDS: ELAVIL 25 MG PO (21:37)
[2024-08-20] MEDS: LIPITOR 80 MG PO (21:37)
[2024-08-20 23:32] VITALS: BP 138/87
[2024-08-21] VITALS (7 sets, daily range): BP systolic 118–141; BP diastolic 72–99
[2024-08-21] MEDS: DUONEB 3 ML INH ×4 (05:46→19:30)
--- NOTE | 2024-08-21 06:23 | W.PN.HOSP.TC ---
Today's Communication/Plan
-
wean O2 as tolerated
cont abx
steroids
glycemic control
Nystatin Swish started possible oral thrush
Assessment / Plan
Assessment / Plan
Physical Exam
General: no acute distress, appears comfortable at this time, obese
HEENT: normocephalic atraumatic possible oral thrush
CVS: S1-S2 normal
Chest: mild wheezing
Abdomen: Soft, NT / Bowel sounds present
Extremities: No edema, normal pulses
Neuro: AOx3
Psych: calm
73M HTN afib COPD Tobacco here for COPD/PNA
# Community-acquired pneumonia
COPD exacerbation
Acute hypoxic respiratory insufficiency secondary to above
wean O2 as tolerated
[place] mist nasal spray for dry nostrils d/t oxygen supplementation
Continue ceftriaxone doxycycline
IV Decadron tapered to Q12 cont
Mucinex, nebulizer treatments
Speech eval appreciated appropriate for regular diet with thin liquids with aspiration precaution, outpt [facility] ([facility] prefers) and/or FEES
Incentive spirometer Acapella
CT appreciated PE ruled out, dependent atelectasis posterior right lung base, mild cardiomegaly
Smoking cessation strongly counseled
Possible Oral thrush
-nystatin swish and swallow started 08/21/24
#Hoarseness Sore Throat
#Progressive voice changes
#Hx vocal cord polyp removal
ENT eval appreciated flex laryngoscopy performed bedside no evidence of suspicious lesion, vocal cord swelling possibly d/t acid reflux (Protonix increased to BID) outpt follow up recommended
# Paroxysmal atrial fibrillation
Continue amiodarone, Eliquis
Sees Dr Shah at [facility]
# Diabetes-continue metformin and sliding scale
HbA1C- 6.1 prediabetes level
Watch sugars while on steroids
# CHF-type unknown. Ejection fraction was normal in October 2022-continue home Entresto, Lasix
# Prostate disease-continue doxazosin
# Hyperlipidemia/atherosclerosis-continue statin
# History of pericardial effusion
# Smoker-cessation counseling
# Obesity per BMI
# DVT prophylaxis-Eliquis
# DNR
Discussed with patient and patient's Susy
I spent a total of 50 minutes with the patient or on the floor. More than 50% of this time involved counseling and coordination of care.
Anticipated Discharge: 24 - 48 hours
Subjective/Interval History
-
Date of Service: August 21, 2024
no acute distress sitting up comfortably on bed. remains on oxygen supplementation 2L
Objective Data
-
Labs:
Laboratory Results
08/21/24
05:57
WBC Pending
Hgb Pending
Hct Pending
Plt Count Pending
Sodium Pending
Potassium Pending
Chloride Pending
Carbon Dioxide Pending
BUN Pending
Creatinine Pending
Glucose Pending
Calcium Pending
Vital Signs:
Vital Signs
Temp Pulse Resp BP Pulse Ox
98.1 F 86 15 132/85 94
08/21/24 03:40 08/21/24 05:48 08/21/24 05:48 08/21/24 03:40 08/21/24 05:48
I&O
08/19/24 08/20/24 08/21/24
06:59 06:59 06:59
Intake Total 480 / 480 1920 / 1920 600 / 600
Output Total 2475 / 2475 700 / 700
Balance 480 / 480 -555 / -555 -100 / -100
[2024-08-21] MEDS: NICODERM TRANSDERMAL 21 MG TRANSDERM (07:24)
[2024-08-21] MEDS: OCEAN, SALINE MIST 1 SPRAYS NASAL ×4 (07:24→21:33)
[2024-08-21 07:26] LABS: Glucose - Point of Care 120 mg/dl (70-99)
[2024-08-21] MEDS: DECADRON 4 MG IV ×2 (07:33→19:45)
[2024-08-21] MEDS: PACERONE 100 MG PO (07:33)
[2024-08-21] MEDS: CYMBALTA DELAYED RELEASE 20 MG PO (07:33)
[2024-08-21] MEDS: GLUCOPHAGE 500 MG PO ×2 (07:33→21:32)
[2024-08-21] MEDS: PROTONIX 40 MG PO ×2 (07:33→19:44)
[2024-08-21] MEDS: MUCINEX 600 MG PO ×2 (07:34→19:44)
[2024-08-21] MEDS: ELIQUIS 5 MG PO ×2 (07:34→19:43)
[2024-08-21] MEDS: ENTRESTO 97 MG/103 MG 1 TAB PO ×2 (07:34→19:43)
[2024-08-21] MEDS: LYRICA 75 MG PO ×3 (07:34→21:32)
[2024-08-21] MEDS: LASIX 40 MG PO (07:34)
[2024-08-21] MEDS: CARDURA 8 MG PO (07:34)
[2024-08-21] MEDS: VIBRAMYCIN 100 MG PO ×2 (07:35→19:44)
[2024-08-21] MEDS: NOVOLOG FLEXPEN-LOW RESISTANCE SC ×2 (07:35→13:07)
[2024-08-21 08:19] LABS: Hematocrit 44.3 % (39.0-52.0); Hemoglobin 14.8 g/dL (13.0-18.0); Mean Corp Hgb Conc. 33.4 g/dL (33.0-37.0); Mean Corpuscular Hgb 30.7 pg (27.0-31.0); Mean Corpuscular Volume 91.9 fL (80.0-94.0); Mean Platelet Volume 10.8 fL (7.4-10.4); Platelet Count 208 10^3/uL (130-400); Red Blood Cell Count 4.82 10^6/uL (4.70-6.10); Red Cell Dist. Width 15.7 % (11.5-14.5); White Blood Cell Count 15.7 10^3/uL (4.8-10.8)
[2024-08-21 08:52] LABS: Blood Urea Nitrogen 27 mg/dl (9-20); Calcium 8.1 mg/dl (8.4-10.2); Carbon Dioxide 23 mmol/L (22-30); Chloride 101 mmol/L (98-107); Estimated Creatinine Clearance 84 ml/min; Glucose 114 mg/dl (70-99); Magnesium 1.9 mg/dl (1.6-2.3); Phosphorus 3.9 mg/dl (2.5-4.5); Potassium 4.3 mmol/L (3.5-5.1); Sodium 136 mmol/L (135-145); eGFR > 60.00
[2024-08-21 13:04] LABS: Glucose - Point of Care 122 mg/dl (70-99)
[2024-08-21] MEDS: MYCOSTATIN ORAL SUSPENSION 5 ML PO ×3 (13:29→21:33)
--- NOTE | 2024-08-21 14:24 | CON.MD ---
Consultation - Medical
-
Chief complaint: hoarseness and sore throat
History of present illness: This patient is a 73-year-old gentleman who is presenting presented with an exacerbation of his COPD and pneumonia. He has noted increasing shortness of breath with coughing episodes. He has been chronically coarse but
the hoarseness has been progressive. He has a history of vocal cord polyps which were removed at the [facility] in [place] about 7 years ago. The patient states that he is able to swallow liquids and solids pretty well most of the time. He
occasionally swallows something the wrong way and that will result in a coughing fit. I was asked to see the patient regarding his chronic hoarseness and his recent sore throat over the last few weeks. The he is chronically anticoagulated with
Eliquis. Patient's white blood count is elevated currently. He has a history of [id number] diabetes mellitus. The patient has a long history of smoking cigarettes. He also has a history of obesity.
Past medical history:
Medical problems: Neuropathy, hyperkalemia, hypermagnesemia, hyponatremia, chronic atrial fibrillation, pericardial effusion, cardiomyopathy, leukocytosis, nicotine dependence, peripheral artery disease, chronic kidney disease, hyperlipidemia,
chronic obstructive pulmonary disease, hepatic congestion, elevated liver enzymes
Allergies: The patient is allergic to bee venom
Home medications: Albuterol sulfate 2 puffs every 6 hours as needed shortness of breath, amiodarone 100 mg p.o. daily, amitriptyline 25 mg p.o. nightly, apixaban 5 mg p.o. twice daily, atorvastatin 80 mg p.o. nightly, doxazosin 8 mg p.o. daily,
duloxetine 20 mg p.o. daily, furosemide 40 mg p.o. daily, magnesium oxide 420 mg p.o. daily, metformin 500 mg p.o. twice daily, frequent bowel 75 mg p.o. 3 times daily, sacubitril�valsartan 1 tablet p.o. twice daily
Family history: Asked and is noncontributory for this condition
Hospitalizations: The patient has been hospitalized for exacerbations of COPD and is currently hospitalized for that diagnosis as well as pneumonia
Past surgical history: the patient underwent hip replacement x 2 on the right side several years ago
Review of systems: Positive for hoarseness, positive for sore throat, negative for severe dysphagia, negative for current respiratory distress, positive for cough although not severe
Physical examination:
Head: Atraumatic and normocephalic
Eyes: Extraocular movements are intact
Nose: Mild septal deviation toward the right side with turbinate hypertrophy but no infection
Mouth/oropharynx: No significant mucosal abnormalities noted
Salivary glands: Normal to palpation
Thyroid gland: Normal to palpation
Cranial nerves: 2 through 12 are intact
Neck: Without adenopathy
Voice: Mildly to moderately hoarse with slightly decreased volume
Ears: Normal to exam
Hypopharynx/larynx: Adequate visualization was not possible with a mirror
Procedure: Flexible laryngoscopy performed at bedside
The patient's nose was topically anesthetized bilaterally using viscous lidocaine. The patient tolerated this well. After waiting for several minutes the patient under went evaluation of the nose on both sides using the scope. The left nose was
noted to be more patent and the scope was passed through the left nose into the nasopharynx. Good visualization was achieved. The patient has some redness of the hypopharynx and larynx but no tumors or masses are noted. No suspicious lesions are
seen. There is a small mucous retention cyst of the left lateral pharyngeal wall which is benign. No purulence is seen. No polyps are noted. No nodules are seen. The patient has mild vocal cord swelling bilaterally.
Impression: Chronic hoarseness and mild sore throat without evidence of suspicious lesion. Vocal cord swelling is fairly minimal and there are no polyps or nodules. The patient may have acid reflux which is not being treated.
Plan: Rest voice and avoid clearing throat: Suggest antiacid treatment. The patient can follow-up as an outpatient for reevaluation of the larynx.
[2024-08-21 16:29] LABS: Glucose - Point of Care 180 mg/dl (70-99)
[2024-08-21] MEDS: NOVOLOG FLEXPEN-LOW RESISTANCE 1 UNITS SC (17:02)
[2024-08-21] MEDS: STERILE WATER FOR INJECTION 10 ML IV (17:03)
[2024-08-21] MEDS: ROCEPHIN 1000 MG IV (17:04)
[2024-08-21] MEDS: TYLENOL 650 MG PO (19:43)
[2024-08-21 21:29] LABS: Glucose - Point of Care 173 mg/dl (70-99)
[2024-08-21] MEDS: LIPITOR 80 MG PO (21:32)
[2024-08-21] MEDS: ELAVIL 25 MG PO (21:32)
[2024-08-21] MEDS: ROBITUSSIN DM 5 ML PO (22:44)
[2024-08-22 03:20] VITALS: BP 146/97
--- NOTE | 2024-08-22 06:22 | W.PN.HOSP.TC ---
Today's Communication/Plan
-
wean O2 as tolerated, home oxygen assessment AM tomorrow
cont abx
steroid taper
glycemic control
Nystatin Swish and swallow
Assessment / Plan
Assessment / Plan
Physical Exam
General: no acute distress, appears comfortable at this time, obese
HEENT: normocephalic atraumatic, oral thrush
CVS: S1-S2 normal
Chest: mild wheezing
Abdomen: Soft, NT / Bowel sounds present
Extremities: No edema, normal pulses
Neuro: AOx3
Psych: calm
73M HTN afib COPD Tobacco here for COPD/PNA
# Community-acquired pneumonia
COPD exacerbation
Acute hypoxic respiratory insufficiency secondary to above
wean O2 as tolerated
[place] mist nasal spray for dry nostrils d/t oxygen supplementation
Continue ceftriaxone doxycycline
IV Decadron tapered to Q12 cont
Mucinex, nebulizer treatments
Speech eval w VSE appreciated appropriate for reg/thin liq, aspiration precautions, outpt speech and GI eval
Incentive spirometer Acapella
CT appreciated PE ruled out, dependent atelectasis posterior right lung base, mild cardiomegaly
Smoking cessation strongly counseled
Oral thrush
-nystatin swish and swallow started 08/21/24 continue for 7 days
#Hoarseness Sore Throat
#Progressive voice changes
#Hx vocal cord polyp removal
ENT eval appreciated flex laryngoscopy performed bedside no evidence of suspicious lesion, vocal cord swelling possibly d/t acid reflux (Protonix increased to BID) outpt follow up recommended
# Paroxysmal atrial fibrillation
Continue amiodarone, Eliquis
Sees Dr Shah at [facility]
# Diabetes-continue metformin and sliding scale
HbA1C- 6.1 prediabetes level
monitor and titrate insulin regimen as necessary
# CHF-type unknown. Ejection fraction was normal in October 2022-continue home Entresto, Lasix
# Prostate disease-continue doxazosin
# Hyperlipidemia/atherosclerosis-continue statin
# History of pericardial effusion
# Smoker-cessation counseling
# Obesity per BMI
# DVT prophylaxis-Eliquis
# DNR
I spent a total of 45 minutes with the patient or on the floor. More than 50% of this time involved counseling and coordination of care.
Anticipated Discharge: 24 - 48 hours
Subjective/Interval History
-
Date of Service: August 22, 2024
No acute distress. Remains on oxygen supplementation.
Objective Data
-
Labs:
Laboratory Results
08/22/24
06:00
WBC Pending
Hgb Pending
Hct Pending
Plt Count Pending
Sodium Pending
Potassium Pending
Chloride Pending
Carbon Dioxide Pending
BUN Pending
Creatinine Pending
Glucose Pending
Calcium Pending
Vital Signs:
Vital Signs
Temp Pulse Resp BP Pulse Ox
97.4 F 102 20 146/97 94
08/22/24 03:20 08/22/24 03:20 08/22/24 03:20 08/22/24 03:20 08/22/24 03:20
I&O
08/20/24 08/21/24 08/22/24
06:59 06:59 06:59
Intake Total 0 / 1920 1320 / 1320 2320 / 2320
Output Total 2475 / 2475 2180 / 2180 2640 / 2640
Balance -555 / -555 -860 / -860 -320 / -320
[2024-08-22 07:35] VITALS: BP 150/96
[2024-08-22] MEDS: ENTRESTO 97 MG/103 MG 1 TAB PO ×2 (07:51→19:51)
[2024-08-22] MEDS: ELIQUIS 5 MG PO ×2 (07:51→19:51)
[2024-08-22] MEDS: LYRICA 75 MG PO ×3 (07:51→19:52)
[2024-08-22] MEDS: PACERONE 100 MG PO (07:51)
[2024-08-22] MEDS: CARDURA 8 MG PO (07:52)
[2024-08-22] MEDS: CYMBALTA DELAYED RELEASE 20 MG PO (07:52)
[2024-08-22] MEDS: LASIX 40 MG PO (07:52)
[2024-08-22] MEDS: PEPCID 40 MG PO (07:52)
[2024-08-22] MEDS: PROTONIX 40 MG PO ×2 (07:52→19:52)
[2024-08-22] MEDS: GLUCOPHAGE 500 MG PO ×2 (07:52→19:51)
[2024-08-22] MEDS: VIBRAMYCIN 100 MG PO ×2 (07:52→19:52)
[2024-08-22] MEDS: MUCINEX 600 MG PO ×2 (07:52→19:52)
[2024-08-22] MEDS: DECADRON 4 MG IV ×2 (07:53→19:50)
[2024-08-22] MEDS: NICODERM TRANSDERMAL 21 MG TRANSDERM (07:54)
[2024-08-22] MEDS: MYCOSTATIN ORAL SUSPENSION 5 ML PO ×4 (07:54→19:51)
[2024-08-22] MEDS: NOVOLOG FLEXPEN-LOW RESISTANCE SC ×2 (07:54→11:49)
[2024-08-22] MEDS: ROBITUSSIN DM 5 ML PO ×2 (07:55→19:51)
[2024-08-22] MEDS: DUONEB 3 ML INH ×4 (08:05→19:14)
[2024-08-22 08:14] LABS: Hematocrit 47.2 % (39.0-52.0); Hemoglobin 15.7 g/dL (13.0-18.0); Mean Corp Hgb Conc. 33.3 g/dL (33.0-37.0); Mean Corpuscular Hgb 30.1 pg (27.0-31.0); Mean Corpuscular Volume 90.6 fL (80.0-94.0); Mean Platelet Volume 10.4 fL (7.4-10.4); Platelet Count 206 10^3/uL (130-400); Red Blood Cell Count 5.21 10^6/uL (4.70-6.10); Red Cell Dist. Width 15.5 % (11.5-14.5); White Blood Cell Count 11.7 10^3/uL (4.8-10.8)
[2024-08-22] MEDS: OCEAN, SALINE MIST NASAL ×2 (08:21→16:56)
[2024-08-22 08:37] LABS: Blood Urea Nitrogen 26 mg/dl (9-20); Calcium 8.6 mg/dl (8.4-10.2); Carbon Dioxide 26 mmol/L (22-30); Chloride 100 mmol/L (98-107); Estimated Creatinine Clearance 84 ml/min; Glucose 129 mg/dl (70-99); Magnesium 2.1 mg/dl (1.6-2.3); Phosphorus 3.8 mg/dl (2.5-4.5); Potassium 4.4 mmol/L (3.5-5.1); Sodium 137 mmol/L (135-145); eGFR > 60.00
--- NOTE | 2024-08-22 09:49 | PTOTSP ---
Videofluoroscopic Swallow Study
Summary: WFL oral stage, WFL-mild pharyngeal stage. No aspiration.
Recommendation:
1. Regular, Thin
2. Strategies: upright to 90 degrees, small single sips/bites, slow rate w/ breaks for breathing, double swallows to clear pharyngeal residue, remain upright for at least 30 minutes after PO intake as a reflux precaution
3. Oral care 3x daily
4. No further MONUMENT INSTALLER f/u warranted for dysphagia tx. Consider GI consult to assess for reflux. Consider outpatient voice consult.
[2024-08-22 11:20] VITALS: BP 146/87
--- NOTE | 2024-08-22 11:41 | CM ---
Late note from 08/19/2024:
CM met with Damon at bedside to complete IA.
Patient lives in a one story home with ramp to enter, walks with a rollator. Patient sleeps in a recliner lift chair which he uses to stand him up. Patient's provides some assistance with ADL's. Patient has an elevated toilet seat with grab
bars.
Pt will return home with ; VN recommended and pt agreeable, but neither he nor his could remember what agency he had. looking to see if she can identify it; f/u with pt for VN choice
[2024-08-22 11:45] LABS: Glucose - Point of Care 158 mg/dl (70-99)
--- NOTE | 2024-08-22 11:49 | CM ---
LATE NOTE FROM Patient lives in a one story home with ramp to enter, walks with a rollator. Patient sleeps in a recliner lift chair which he uses to stand him up. Patient's provides some assistance with ADL's. Patient has an elevated toilet
seat with grab bars.
Pt will return home with ; VN recommended and pt agreeable, but neither he nor his could remember what agency he had. looking to see if she can identify it; f/u with pt for VN choice
[2024-08-22] MEDS: OCEAN, SALINE MIST 1 SPRAYS NASAL ×2 (12:45→21:21)
[2024-08-22 15:05] VITALS: BP 148/92
[2024-08-22 16:43] LABS: Glucose - Point of Care 178 mg/dl (70-99)
[2024-08-22] MEDS: NOVOLOG FLEXPEN-LOW RESISTANCE 1 UNITS SC (16:48)
[2024-08-22] MEDS: ROCEPHIN 1000 MG IV (16:49)
[2024-08-22] MEDS: STERILE WATER FOR INJECTION 10 ML IV (16:49)
[2024-08-22 21:13] LABS: Glucose - Point of Care 168 mg/dl (70-99)
[2024-08-22] MEDS: LIPITOR 80 MG PO (21:21)
[2024-08-22] MEDS: ELAVIL 25 MG PO (21:21)
[2024-08-22 23:46] VITALS: BP 115/72
[2024-08-23 06:25] LABS: Hematocrit 46.3 % (39.0-52.0); Hemoglobin 15.7 g/dL (13.0-18.0); Mean Corp Hgb Conc. 33.9 g/dL (33.0-37.0); Mean Corpuscular Hgb 30.4 pg (27.0-31.0); Mean Corpuscular Volume 89.6 fL (80.0-94.0); Mean Platelet Volume 10.6 fL (7.4-10.4); Platelet Count 212 10^3/uL (130-400); Red Blood Cell Count 5.17 10^6/uL (4.70-6.10); Red Cell Dist. Width 15.3 % (11.5-14.5); White Blood Cell Count 11.4 10^3/uL (4.8-10.8)
[2024-08-23 06:48] LABS: Blood Urea Nitrogen 27 mg/dl (9-20); Calcium 8.3 mg/dl (8.4-10.2); Carbon Dioxide 26 mmol/L (22-30); Chloride 99 mmol/L (98-107); Estimated Creatinine Clearance 92 ml/min; Glucose 134 mg/dl (70-99); Magnesium 2.1 mg/dl (1.6-2.3); Phosphorus 3.8 mg/dl (2.5-4.5); Potassium 4.1 mmol/L (3.5-5.1); Sodium 135 mmol/L (135-145); eGFR > 60.00
[2024-08-23] MEDS: DUONEB 3 ML INH ×4 (07:02→19:52)
[2024-08-23 07:25] LABS: Glucose - Point of Care 119 mg/dl (70-99)
--- NOTE | 2024-08-23 07:25 | W.PN.HOSP.TC ---
Today's Communication/Plan
-
Last day for antibiotics
steroid taper
glycemic control
cont nystatin swish and swallow
amiodarone increase to 200 mg daily
Amlodipine 5 mg daily started hypertension
Assessment / Plan
Assessment / Plan
Physical Exam
General: no acute distress, appears comfortable at this time, obese
HEENT: normocephalic atraumatic, oral thrush
CVS: S1-S2 normal
Chest: clear to auscultation b/l
Abdomen: Soft, NT / Bowel sounds present
Extremities: No edema, normal pulses
Neuro: AOx3
Psych: calm
73M HTN afib COPD Tobacco here for COPD/PNA
# Community-acquired pneumonia
COPD exacerbation
Acute hypoxic respiratory insufficiency secondary to above
weaned off oxygen supplementation stable respiratory status on room air
Continue ceftriaxone doxycycline planned 5 days abx then stop
IV Decadron tapered to prednisone 40 mg daily
Mucinex, nebulizer treatments
Speech eval w VSE appreciated appropriate for reg/thin liq, aspiration precautions, outpt speech and GI eval
Incentive spirometer Acapella
CT appreciated PE ruled out, dependent atelectasis posterior right lung base, mild cardiomegaly
Smoking cessation strongly counseled
Oral thrush
-nystatin swish and swallow started 08/21/24 continue for 7 days
#Hoarseness Sore Throat
#Progressive voice changes
#Hx vocal cord polyp removal
ENT eval appreciated flex laryngoscopy performed bedside no evidence of suspicious lesion, vocal cord swelling possibly d/t acid reflux (Protonix increased to BID) outpt follow up recommended
# Paroxysmal atrial fibrillation
#Tachycardia
Continue amiodarone, Eliquis
Sees Dr Shah at [facility]
Amiodarone increased from 100 mg to 200 mg daily
#HTN
start amlodipine 5 mg daily
cont home Entresto Lasix Doxazosin
# Diabetes-continue metformin and sliding scale
HbA1C- 6.1 prediabetes level
monitor and titrate insulin regimen as necessary
# CHF-type unknown. Ejection fraction was normal in October 2022-continue home Kurt Pollack
# Prostate disease-continue doxazosin
# Hyperlipidemia/atherosclerosis-continue statin
# History of pericardial effusion
# Smoker-cessation counseling
# Obesity per BMI
# DVT prophylaxis-Eliquis
# DNR
I spent a total of 40 minutes with the patient or on the floor. More than 50% of this time involved counseling and coordination of care.
Anticipated Discharge: 24 - 48 hours
Subjective/Interval History
-
Date of Service: August 23, 2024
Weaned off oxygen supplementation. Stable respiratory status on room air. Overall patient reports feeling well.
Objective Data
-
Labs:
Laboratory Results
08/23/24
05:37
WBC 11.4 H
Hgb 15.7
Hct 46.3
Plt Count 212
Sodium 135
Potassium 4.1
Chloride 99
Carbon Dioxide 26
BUN 27 H
Creatinine 1.0
Glucose 134 H
Calcium 8.3 L
Vital Signs:
Vital Signs
Temp Pulse Resp BP Pulse Ox
97.8 F 107 20 115/72 95
08/22/24 23:46 08/23/24 07:04 08/23/24 07:04 08/22/24 23:46 08/23/24 07:04
I&O
08/22/24 08/23/24 08/24/24
06:59 06:59 06:59
Intake Total 2320 / 2320 1200 / 1200
Output Total 2640 / 2640 1850 / 1850
Balance -320 / -320 -650 / -650
[2024-08-23 07:30] VITALS: BP 145/94
[2024-08-23] MEDS: NOVOLOG FLEXPEN-LOW RESISTANCE SC ×3 (07:50→16:57)
[2024-08-23] MEDS: MUCINEX 600 MG PO ×2 (07:53→19:42)
[2024-08-23] MEDS: PACERONE 100 MG PO ×2 (07:53→17:02)
[2024-08-23] MEDS: PROTONIX 40 MG PO ×2 (07:53→19:42)
[2024-08-23] MEDS: MYCOSTATIN ORAL SUSPENSION 5 ML PO ×4 (07:53→21:23)
[2024-08-23] MEDS: CARDURA 8 MG PO (07:53)
[2024-08-23] MEDS: NICODERM TRANSDERMAL 21 MG TRANSDERM (07:53)
[2024-08-23] MEDS: LYRICA 75 MG PO ×3 (07:54→22:43)
[2024-08-23] MEDS: PEPCID 40 MG PO (07:54)
[2024-08-23] MEDS: LASIX 40 MG PO (07:54)
[2024-08-23] MEDS: ENTRESTO 97 MG/103 MG 1 TAB PO ×2 (07:54→19:42)
[2024-08-23] MEDS: GLUCOPHAGE 500 MG PO ×2 (07:54→21:23)
[2024-08-23] MEDS: CYMBALTA DELAYED RELEASE 20 MG PO (07:54)
[2024-08-23] MEDS: ELIQUIS 5 MG PO ×2 (07:54→19:42)
[2024-08-23] MEDS: VIBRAMYCIN 100 MG PO ×2 (07:54→19:42)
[2024-08-23] MEDS: DELTASONE 40 MG PO (07:54)
[2024-08-23] MEDS: OCEAN, SALINE MIST 1 SPRAYS NASAL (07:55)
[2024-08-23 11:19] VITALS: PULSE 107; O2SAT 95
[2024-08-23 11:54] LABS: Glucose - Point of Care 130 mg/dl (70-99)
--- NOTE | 2024-08-23 12:44 | CM ---
Patient seen bedside.
Therapy recommending home with home care.
patient current with [facility]/ [facility] will send referral via [facility].
Per patient he has transport home.
Plan: home with [facility]
[2024-08-23] MEDS: OCEAN, SALINE MIST NASAL (12:53)
[2024-08-23 15:35] VITALS: BP 166/103
[2024-08-23 15:58] VITALS: BP 150/100
[2024-08-23 16:53] LABS: Glucose - Point of Care 157 mg/dl (70-99)
[2024-08-23] MEDS: ROCEPHIN 1000 MG IV (17:03)
[2024-08-23] MEDS: NORVASC 5 MG PO (17:03)
[2024-08-23] MEDS: STERILE WATER FOR INJECTION 10 ML IV (17:03)
[2024-08-23 18:33] VITALS: BP 142/91
[2024-08-23 21:12] LABS: Glucose - Point of Care 209 mg/dl (70-99)
[2024-08-23] MEDS: LIPITOR 80 MG PO (21:23)
[2024-08-23] MEDS: ELAVIL 25 MG PO (21:23)
[2024-08-23] MEDS: TYLENOL 650 MG PO (21:26)
[2024-08-23 23:49] VITALS: BP 123/80
--- NOTE | 2024-08-24 02:16 | DOWNTIME ---
There was a [employer] Downtime on 08/24/2024 from 0100 to 08/24/2023 at 0205 . Downtime documentation of patient's care, including medication administrations, has been reconciled in the electronic record per guidelines. Refer to the
patient's paper chart under the miscellaneous tab to see printed paper medication records and downtime forms.
--- NOTE | 2024-08-24 07:06 | W.PN.HOSP.TC ---
Today's Communication/Plan
-
steroid taper
glycemic control
cont nystatin swish and swallow
blood pressure control
likely discharge tomorrow if remains stable/continues to improve
Assessment / Plan
Assessment / Plan
Physical Exam
General: no acute distress, appears comfortable at this time, obese
HEENT: normocephalic atraumatic, oral thrush
CVS: S1-S2 normal
Chest: clear to auscultation b/l
Abdomen: Soft, NT / Bowel sounds present
Extremities: No edema, normal pulses
Neuro: AOx3
Psych: calm
73M HTN afib COPD Tobacco here for COPD/PNA
# Community-acquired pneumonia
COPD exacerbation
Acute hypoxic respiratory insufficiency secondary to above
weaned off oxygen supplementation stable respiratory status on room air
Continue ceftriaxone doxycycline planned 5 days abx then stop
IV Decadron tapered to prednisone 40 mg daily
Mucinex, nebulizer treatments
Speech eval w VSE appreciated appropriate for reg/thin liq, aspiration precautions, outpt speech and GI eval
Incentive spirometer Acapella
CT appreciated PE ruled out, dependent atelectasis posterior right lung base, mild cardiomegaly
Smoking cessation strongly counseled
Home Oxygen assessment appreciated no needs.
Oral thrush
-nystatin swish and swallow started 08/21/24 continue for 7 days
#Hoarseness Sore Throat
#Progressive voice changes
#Hx vocal cord polyp removal
ENT eval appreciated flex laryngoscopy performed bedside no evidence of suspicious lesion, vocal cord swelling possibly d/t acid reflux (Protonix increased to BID) outpt follow up recommended
# Paroxysmal atrial fibrillation
#Tachycardia
Continue amiodarone, Eliquis
Sees Dr Shah at [facility]
Amiodarone increased from 100 mg to 200 mg daily, HR since improved
#HTN
started on amlodipine 5 mg daily, blood pressure control since improved, cont
cont home Entresto Lasix Doxazosin
# Diabetes-continue metformin and sliding scale
HbA1C- 6.1 prediabetes level
monitor and titrate insulin regimen as necessary
# CHF-type unknown. Ejection fraction was normal in October 2022-continue home Entresto, Lasix
# Prostate disease-continue doxazosin
# Hyperlipidemia/atherosclerosis-continue statin
# History of pericardial effusion
# Smoker-cessation counseling
# Obesity per BMI
# DVT prophylaxis-Eliquis
# DNR
I spent a total of 40 minutes with the patient or on the floor. More than 50% of this time involved counseling and coordination of care.
Anticipated Discharge: Within 24 hours
Subjective/Interval History
-
Date of Service: August 24, 2024
No acute distress. Patient appears well. Stable respiratory status on room air. Denies new acute issues at this time.
Objective Data
-
Vital Signs:
Vital Signs
Temp Pulse Resp BP Pulse Ox
97.8 F 106 20 123/80 96
08/23/24 23:49 08/23/24 23:49 08/23/24 23:49 08/23/24 23:49 08/23/24 23:49
I&O
08/23/24 08/24/24 08/25/24
06:59 06:59 06:59
Intake Total 1200 / 1200 1680 / 1680
Output Total 1850 / 1850 2300 / 2300
Balance -650 / -650 -620 / -620
[2024-08-24] MEDS: DUONEB 3 ML INH ×3 (07:08→15:11)
[2024-08-24 07:28] VITALS: BP 139/81
[2024-08-24 07:35] LABS: Glucose - Point of Care 102 mg/dl (70-99)
[2024-08-24] MEDS: NOVOLOG FLEXPEN-LOW RESISTANCE SC ×2 (08:46→11:43)
[2024-08-24] MEDS: MUCINEX 600 MG PO ×2 (08:48→21:00)
[2024-08-24] MEDS: PACERONE 200 MG PO (08:48)
[2024-08-24] MEDS: LASIX 40 MG PO (08:48)
[2024-08-24] MEDS: GLUCOPHAGE 500 MG PO ×2 (08:48→21:00)
[2024-08-24] MEDS: LYRICA 75 MG PO ×3 (08:48→21:01)
[2024-08-24] MEDS: NICODERM TRANSDERMAL 21 MG TRANSDERM (08:48)
[2024-08-24] MEDS: PROTONIX 40 MG PO ×2 (08:48→21:00)
[2024-08-24] MEDS: ELIQUIS 5 MG PO ×2 (08:48→20:59)
[2024-08-24] MEDS: DELTASONE 40 MG PO (08:48)
[2024-08-24] MEDS: PEPCID 40 MG PO (08:48)
[2024-08-24] MEDS: MYCOSTATIN ORAL SUSPENSION 5 ML PO ×4 (08:48→21:00)
[2024-08-24] MEDS: CYMBALTA DELAYED RELEASE 20 MG PO (08:48)
[2024-08-24] MEDS: ENTRESTO 97 MG/103 MG 1 TAB PO ×2 (08:49→21:01)
[2024-08-24] MEDS: NORVASC 5 MG PO (08:49)
[2024-08-24] MEDS: CARDURA 8 MG PO (08:49)
[2024-08-24 10:34] VITALS: BP 140/91; PULSE 107; O2SAT 92
--- NOTE | 2024-08-24 10:37 | CM ---
PT indicated VN at home.
[facility] VN current with pt.
Spoke with Ailin at [facility] she said he will need an auth to resume VN .
Pt has [facility] and [place] insurance .
Faxed clinical to [facility] .
Connor said she will take care of auth for home care.
PLAN Home with [facility] fax [phone]
[2024-08-24 11:36] LABS: Glucose - Point of Care 139 mg/dl (70-99)
[2024-08-24 15:07] VITALS: BP 116/75
[2024-08-24 16:35] LABS: Glucose - Point of Care 160 mg/dl (70-99)
[2024-08-24] MEDS: NOVOLOG FLEXPEN-LOW RESISTANCE 1 UNITS SC (16:40)
[2024-08-24] MEDS: LIPITOR 80 MG PO (21:00)
[2024-08-24] MEDS: ELAVIL 25 MG PO (21:00)
[2024-08-24 21:12] LABS: Glucose - Point of Care 185 mg/dl (70-99)
[2024-08-24 23:16] VITALS: BP 121/85
[2024-08-25 06:49] VITALS: BP 132/96
--- NOTE | 2024-08-25 07:26 | W.PN.HOSP.TC ---
Today's Communication/Plan
-
discharge
Assessment / Plan
Assessment / Plan
Physical Exam
General: no acute distress, appears comfortable at this time, obese
HEENT: normocephalic atraumatic, oral thrush
CVS: S1-S2 normal
Chest: clear to auscultation b/l, stable respiratory status on room air
Abdomen: Soft, NT / Bowel sounds present
Extremities: No edema, normal pulses
Neuro: AOx3
Psych: calm
73M HTN afib COPD Tobacco here for COPD/PNA
# Community-acquired pneumonia
COPD exacerbation
Acute hypoxic respiratory insufficiency secondary to above
weaned off oxygen supplementation stable respiratory status on room air
completed 5 days ceftriaxone doxycycline
IV Decadron tapered to prednisone 40 mg daily, dose to reduce by 10 mg after every 3rd dose till finished
Mucinex, nebulizer treatments
Speech eval w VSE appreciated appropriate for reg/thin liq, aspiration precautions, outpt speech and GI eval
Incentive spirometer Acapella
CT appreciated PE ruled out, dependent atelectasis posterior right lung base, mild cardiomegaly
Smoking cessation strongly counseled
Home Oxygen assessment appreciated no needs.
Oral thrush
-nystatin swish and swallow started 08/21/24 continue for 7 more days on discharge
#Hoarseness Sore Throat
#Progressive voice changes
#Hx vocal cord polyp removal
ENT eval appreciated flex laryngoscopy performed bedside no evidence of suspicious lesion, vocal cord swelling possibly d/t acid reflux (Protonix increased to BID) outpt follow up recommended
# Paroxysmal atrial fibrillation
#Tachycardia
Continue amiodarone, Eliquis
Sees Dr Shah at [facility]
Amiodarone increased from 100 mg to 200 mg daily, HR since improved
#HTN
started on amlodipine 5 mg daily, blood pressure control since improved, cont
cont home Entresto Lasix Doxazosin
# Diabetes-continue metformin and sliding scale
HbA1C- 6.1 prediabetes level
monitor and titrate insulin regimen as necessary
# CHF-type unknown. Ejection fraction was normal in October 2022-continue home EntrestoReidix
# Prostate disease-continue doxazosin
# Hyperlipidemia/atherosclerosis-continue statin
# History of pericardial effusion
# Smoker-cessation counseling
# Obesity per BMI
# DVT prophylaxis-Eliquis
# DNR
Medically stable for discharge home with home services and outpatient follow up recommendations.
Total Time Preparing Discharge ___40____ minutes including examination of the patient, summary of the hospital stay, instructions for continuing care to all relevant caregivers; and preparation of discharge records, prescriptions, and referral
forms if necessary.
Anticipated Discharge: Today
Subjective/Interval History
-
Date of Service: August 25, 2024
No acute distress. Overall reports feeling well. Denies new acute issues at this time. Eager to go home
Objective Data
-
Vital Signs:
Vital Signs
Temp Pulse Resp BP Pulse Ox
98.1 F 106 21 121/85 92
08/24/24 23:16 08/24/24 23:16 08/24/24 23:16 08/24/24 23:16 08/24/24 23:16
I&O
08/24/24 08/25/24 08/26/24
06:59 06:59 06:59
Intake Total 1680 / 1680 1320 / 1320
Output Total 2300 / 2300 1750 / 1750
Balance -620 / -620 -430 / -430
[2024-08-25 08:18] LABS: Glucose - Point of Care 93 mg/dl (70-99)
[2024-08-25] MEDS: NOVOLOG FLEXPEN-LOW RESISTANCE SC ×2 (09:05→12:33)
[2024-08-25] MEDS: LASIX 40 MG PO (09:07)
[2024-08-25] MEDS: PROTONIX 40 MG PO (09:07)
[2024-08-25] MEDS: CARDURA 8 MG PO (09:08)
[2024-08-25] MEDS: LYRICA 75 MG PO (09:08)
[2024-08-25] MEDS: MYCOSTATIN ORAL SUSPENSION 5 ML PO (09:08)
[2024-08-25] MEDS: CYMBALTA DELAYED RELEASE 20 MG PO (09:08)
[2024-08-25] MEDS: ENTRESTO 97 MG/103 MG 1 TAB PO (09:09)
[2024-08-25] MEDS: GLUCOPHAGE 500 MG PO (09:09)
[2024-08-25] MEDS: ELIQUIS 5 MG PO (09:10)
[2024-08-25] MEDS: NORVASC 5 MG PO (09:10)
[2024-08-25] MEDS: DELTASONE 40 MG PO (09:10)
[2024-08-25] MEDS: NICODERM TRANSDERMAL 21 MG TRANSDERM (09:11)
[2024-08-25] MEDS: PACERONE 200 MG PO (09:11)
[2024-08-25] MEDS: TYLENOL 650 MG PO (09:16)
[2024-08-25] MEDS: MUCINEX 600 MG PO (11:13)
[2024-08-25 12:25] LABS: Glucose - Point of Care 96 mg/dl (70-99)
[2024-08-25] MEDS: MYCOSTATIN ORAL SUSPENSION PO (14:12)
--- NOTE | 2024-08-25 14:33 | W.DCSUMMARY ---
Discharge Summary
Discharge Data
Date of Admission: 08/18/24
Date of Discharge: 08/25/24
-
Pending Results: No
Discharge Plan
-
Patient Disposition: Home with Home Care
Discharge Diagnosis/Procedures: Pneumonia
COPD exacerbation
Acute hypoxic respiratory insufficiency secondary to above, since resolved/weaned off oxygen supplementation
Oral thrush
Hoarseness Sore Throat, Progressive voice changes
GERD
Paroxysmal atrial fibrillation
Hypertension
History Diabetes, recent HbA1C- 6.1 prediabetes level
Chronic Heart Failure
Prostate disease
Hyperlipidemia/atherosclerosis
Tobacco Use
Obesity
Condition: Fair
Diet: Low Cholesterol and Diabetic, Carb Controlled
Activity: As tolerated and With Walker
Driving Restrictions: Not until seen by your Dr
Bathing Restrictions: None
Others Tests: Repeat Chest X-ray with primary care provider in 1 month of discharge.
Other Services: PT, OT and ST
Activity Restrictions/Additional Instructions:
Please follow up with primary care provider in 1 week of discharge and, in 2-4 weeks of discharge, follow up with ENT, Cardiology, Pulmonology and GI.
Amiodarone has been increased to 200 mg daily for better heart rate rhythm control paroxysmal atrial fibrillation, tachycardia.
Amlodipine has been started for Hypertension.
Nicotine supplementation prescribed. This is available over the counter. Smoking cessation is strongly recommended. Continued use will likely lead to worsening of your condition and increased risk morbidity/mortality.
Nystatin swish and swallow prescribed for oral thrush and suspected esophageal candidiasis. 09/01/24 is your last day for nystatin.
Protonix has been prescribed for acid reflux. Follow up with GI and/or primary care provider to determine when dose can be tapered and/or discontinued.
A prednisone taper has been prescribed for COPD exacerbation:
30 mg daily x3 days, then 20 mg daily x3 days, then 10 mg daily x3 days, then stop.
Please take medications as prescribed/recommended and follow up with primary care provider and/or other healthcare provider involved in your care for refills and/or further adjustment to your medication regimen as necessary.
Referrals:
Mariah Langley CRNP [Family Provider] - in one week
Prescriptions:
New
prednisone 10 mg Tablet
See Rx Instructions .ROUTE .COMPLEX Qty: 18 0RF
Rx Instructions:
Take By Mouth:
30 mg daily x3 days, 20 mg daily x3 days, 10 mg daily x3 days.
nystatin 100,000 unit/mL Suspension
5 ml PO QID 7 Days Qty: 140 0RF
Rx Instructions:
09/01/24 last day for nystatin
nicotine 21 mg/24 hr Patch 24 Hour
21 mg transdermal DAILY Qty: 7 0RF
amiodarone 200 mg Tablet
200 mg PO DAILY Qty: 30 0RF
amlodipine 5 mg Tablet
5 mg PO DAILY Qty: 30 0RF
pantoprazole 40 mg Tablet,Delayed Release (Dr/Ec)
40 mg PO BID Qty: 60 0RF
Continued
magnesium oxide 400 mg (241.3 mg magnesium) Tablet
420 mg PO DAILY
furosemide 40 mg Tablet
40 mg PO DAILY Qty: 30 0RF
duloxetine 20 mg Capsule,Delayed Release(Dr/Ec)
20 mg PO DAILY Qty: 30 0RF
metformin 500 mg Tablet
500 mg PO BID
pregabalin 75 mg Capsule
75 mg PO TID
sacubitril-valsartan 97-103 mg Tablet
1 tab PO BID
albuterol sulfate 90 mcg/actuation HFA aerosol inhaler
2 puff inhalation Q6H PRN (Reason: shortness of breath or wheezing) Qty: 6.7 0RF
Eliquis 5 mg Tablet
5 mg PO BID
doxazosin 8 mg Tablet
8 mg PO DAILY
amitriptyline 25 mg Tablet
25 mg PO HS
atorvastatin 80 mg Tablet
80 mg PO HS
Discontinued
amiodarone 100 mg Tablet
100 mg PO DAILY
Discharge Orders:
Discharge Patient (As Directed); Ordered 08/25/24
Ordered By: Tray Diaz
Discharge Date and Time
Print Language: URDU
--- NOTE | 2024-08-25 15:10 | CM ---
entered order for discharge.
Spoke with Ailin at [facility] .[facility] needed form completed and signed by to resume VN with payor ID.
Forms completed and faxed to [phone] and [phone] as requested
Paulina will drive pt home.
PLAN Home with [facility] fax [phone]
[2024-08-25 15:37] VITALS: BP 123/80
== END 2024-08-25 16:05 | disposition home health service (06) | DRG 190 ==
LOC: 4 EAST ACU 21:02
PROVIDERS: Physician Assistant; Student in an Organized Health Care Education/Training Program; ADMITTING PHYSICIAN Student in an Organized Health Care Education/Training Program; ATTENDING PHYSICIAN Internal Medicine; CONSULT PHYSICIAN Otolaryngology Facial Plastic Surgery; EMERGENCY PHYSICIAN Emergency Medicine; FAMILY PHYSICIAN Nurse Practitioner
DX: J44.0 Chronic obstructive pulmonary disease with (acute) lower respiratory infection (principal); J18.9 Pneumonia, unspecified organism; B37.0 Candidal stomatitis; J44.1 Chronic obstructive pulmonary disease with (acute) exacerbation; Z66 Do not resuscitate; E78.00 Pure hypercholesterolemia, unspecified; I48.0 Paroxysmal atrial fibrillation; K21.9 Gastro-esophageal reflux disease without esophagitis; R09.02 Hypoxemia; F17.210 Nicotine dependence, cigarettes, uncomplicated; R49.0 Dysphonia; R73.03 Prediabetes; I11.0 Hypertensive heart disease with heart failure; I50.9 Heart failure, unspecified; E66.9 Obesity, unspecified; Z96.641 Presence of right artificial hip joint; Z96.651 Presence of right artificial knee joint; Z68.36 Body mass index [BMI] 36.0-36.9, adult; Z11.52 Encounter for screening for COVID-19; Z79.84 Long term (current) use of oral hypoglycemic drugs; Z79.52 Long term (current) use of systemic steroids; Z79.899 Other long term (current) drug therapy
CPT/HCPCS: 71046; 71275; 74230; 80048; 80053; 82962; 83036; 83735; 83880; 84100; 84484; 85025; 85027; 87070; 87205; 87502; 87811; 92610; 92611; 93005; 94640; 97116; 97162; 97166; 99285; 99406; Q9967

== ENCOUNTER → 2024-09-19 14:00 | Outpatient (REF) | payer MEDICARE, OTHER, SELFPAY | LOC: RAD 14:00 | PROVIDERS: ATTENDING PHYSICIAN Internal Medicine Cardiovascular Disease; FAMILY PHYSICIAN Nurse Practitioner | DX: I48.91 Unspecified atrial fibrillation (principal) | CPT/HCPCS: 93880 ==

== ENCOUNTER 2025-01-20 06:24 | Day surgery (SDC) | payer MEDICARE, OTHER, SELFPAY | END 2025-01-20 12:45 | disposition home or self-care (01) | LOC: GI 06:24 | PROVIDERS: ATTENDING PHYSICIAN Internal Medicine Gastroenterology; FAMILY PHYSICIAN Family Medicine | DX: K63.5 Polyp of colon (principal); K57.30 Diverticulosis of large intestine without perforation or abscess without bleeding; K62.1 Rectal polyp; K64.8 Other hemorrhoids; K31.7 Polyp of stomach and duodenum; R12 Heartburn; Z79.01 Long term (current) use of anticoagulants | CPT/HCPCS: 45385; 43239; 88305 ==

== ENCOUNTER 2025-02-07 06:06 | Day surgery (SDC) | payer MEDICARE, OTHER, SELFPAY ==
[2025-02-07] VITALS (14 sets, daily range): BP systolic 99–129; BP diastolic 52–89; BMI 34.3
[2025-02-07 09:43] LABS: Glucose - Point of Care 229 mg/dl (70-99)
[2025-02-07] MEDS: NOVOLOG vial 1 UNITS SC (10:05)
[2025-02-07] MEDS: DUONEB 3 ML INH (10:40)
== END 2025-02-07 13:12 | disposition home or self-care (01) ==
LOC: SDS 06:06
PROVIDERS: ATTENDING PHYSICIAN Internal Medicine Gastroenterology; FAMILY PHYSICIAN Family Medicine
DX: K31.7 Polyp of stomach and duodenum (principal); K31.9 Disease of stomach and duodenum, unspecified
CPT/HCPCS: 43254; 82962; 88305; 94640

== ENCOUNTER 2025-05-05 16:02 | Inpatient (IN) | payer MEDICARE, OTHER, SELFPAY ==
[2025-05-05] VITALS (12 sets, daily range): BP systolic 121–187; BP diastolic 58–110; BMI 35.9
--- NOTE | 2025-05-05 10:43 | ED.GENMED ---
History of Present Illness
General
Chief Complaint: Fall
Source: patient and spouse
Exam Limitations: none
Time Seen by Provider: 05/05/25 10:38
Nursing documentation reviewed up to this point in time: agreed with
History of Present Illness
History of Present Illness:
Note:
CHIEF COMPLAINT(S)
Chest pain and leg pain following a fall.
HISTORY OF PRESENT ILLNESS
The patient is a 74-year-old male who presented following a fall that occurred last night. The patient reports experiencing chest pain since last night, which began prior to the fall. He describes the chest pain as occurring in the right side of his
chest. While performing wall-related activities, the patient believes he might have hit his chest on a handle. In addition to chest pain, the patient reports pain in his left calf and knee, which is not a new symptom for him, as he indicates always
experiencing pain in that area. The patient mentioned 'always being in pain down there,' referring to his leg, but did not have chest pain before this incident. The fall occurred when the patient was attempting to use a walker to go outside for
smoking but tripped and fell in the hallway, landing on the tile floor. The patient was not left lying on the floor overnight, as a neighbor assisted him in getting up.
CHRONIC MEDICAL CONDITIONS SIGNIFICANTLY AFFECTING CARE
The patient is on Apixaban (Eloquist) for atrial fibrillation.
SOCIAL DETERMINANTS AFFECTING HEALTH
The patient is a with a history of service. He reports financial concerns stating, 'Paper now, Im a ruin. Im not going to make any money.' He also mentioned the use of a walker, which suggests possible mobility issues. The patient
indicated planning to smoke, although the type of smoking was not specified.
PHYSICAL EXAM
General: Alert, no acute distress.
Skin: Warm, dry. left leg erythema
Head: Normocephalic, atraumatic.
Neck: Supple, trachea midline.
Eye Ears, nose, mouth and throat: Oral mucosa moist.
Cardiovascular: Normal peripheral perfusion, No edema.
Respiratory: Respirations are non-labored.
Gastrointestinal: Abdomen nondistended.
Back: Normal range of motion, Normal alignment.
Musculoskeletal: Normal range of motion, normal strength.
Neurological: Alert and oriented to person, place, time, and situation, No focal neurological deficit observed.
Psychiatric: Cooperative, appropriate mood & affect.
PLAN
The plan includes obtaining X-rays and an ultrasound to assess the areas of pain following the fall, specifically focusing on the chest and left leg regions. Blood tests will also be checked as part of the evaluation process.
DIFFERENTIAL DIAGNOSIS
The Differential Diagnosis includes, in no particular order and is not limited to:
1. Contusion or hematoma from the fall
2. Musculoskeletal pain due to trauma
3. Fractured rib or ribs
4. Deep vein thrombosis (DVT) in the leg
5. Thoracic strain or sprain
6. Pulmonary embolism
7. Costochondritis
8. Ligament or tendon injury of the knee or calf
9. Atrial fibrillation complications despite anticoagulation
10. Exacerbation of chronic pain conditions
CARE-UPDATE
05/05/25 - 14:45
Patients troponin level is slightly elevated at 0.04. Labs indicate acute kidney injury and leukocytosis. Plan to admit patient to hospice for management of cellulitis and chest pain. No evidence of STEMI observed. Continue low-dose aspirin as
ordered.
CARE-UPDATE
05/05/25 - 16:37
The patient was admitted for IV antibiotics due to left lower leg cellulitis and received IV Zosyn. Initial Troponin levels were negative, alleviating concerns of myocardial infarction despite reported chest pain. The fall was likely secondary to
acute kidney injurys impact on the patients overall condition. Further renal function monitoring is required to assess the progression of the kidney injury.
EKG
My independent EKG interpretation is:
- Rhythm: Sinus rhythm
- Conduction Abnormalities: First degree AV block
- Bundle Branch Blocks: Right bundle branch block, left anterior fascicular block
- QT Interval: Normal, slightly prolonged
- Ischemia: No signs of ischemia
Disposition:
SUMMARY OF ENCOUNTER
The patient, a 74-year-old male, presented to the emergency department following a fall. He reported chest pain, which began before the fall and left leg pain, particularly in the calf and knee. The chest pain is localized to the right side and was
momentarily exacerbated by a possible collision with a handle during his fall. The leg pain in the left calf and knee is noted as chronic. Following examination and initial evaluation, significant findings included elevated troponin levels, acute
kidney injury, leukocytosis, and signs of cellulitis in the left lower leg. The chest pain was assessed without evidence of acute coronary syndrome (ACS). The decision was made to admit the patient to the hospital for management of his conditions,
including IV antibiotics for cellulitis.
DISPOSITION
Admit to hospital.
ASSESSMENT
Likely acute kidney injury, leukocytosis, and left lower leg cellulitis.
EMERGENCY TREATMENTS ADMINISTERED
The patient received IV piperacillin/tazobactam (Zosyn) for treatment of cellulitis.
PLAN
1. Admit the patient for in-hospital management and further evaluation.
2. Continue IV antibiotics for cellulitis.
3. Monitor renal function and manage kidney injury.
4. Evaluate chest pain with focus on ruling out ACS.
INDEPENDENT REVIEW OF LABS AND INTERPRETATION OF TESTS
My independent review of troponin indicates slightly elevated levels at 0.04, ruling out an acute myocardial infarction.
My independent review of laboratory tests indicates leukocytosis, suggesting an infection.
My independent review of renal function indicated acute kidney injury, necessitating further monitoring.
MEDICATION RECONCILIATION
The patient was administered IV piperacillin/tazobactam (Zosyn) for the treatment of cellulitis.
MEDICAL DECISION MAKING
- Number and Complexity of Problems Addressed: Chronic conditions affecting care include atrial fibrillation with anticoagulation therapy and chronic leg pain. Differential diagnosis considerations included contusion or hematoma from fall,
musculoskeletal pain due to trauma, fractured ribs, DVT, thoracic strain, pulmonary embolism, costochondritis, ligament or tendon injury, atrial fibrillation complications, and exacerbation of chronic pain.
- Data:
Category 1:
My independent interpretation of the EKG shows sinus rhythm with first-degree AV block, right bundle branch block, and left anterior fascicular block.
My independent review of laboratories highlighted elevated troponin level, acute kidney injury, and leukocytosis.
Category 3:
Discussion of management with the hospitalist regarding patients admission for inpatient care and treatment of cellulitis and further evaluation of acute kidney injury and leukocytosis.
- Risk:
Consideration of Admission was required due to the complexity of the patients conditions, risk factors, and need for IV antibiotic therapy for cellulitis. The patients chronic conditions, recent fall, chest pain, and kidney injury demonstrate a
heightened risk of morbidity requiring inpatient care.
DIAGNOSIS
Acute kidney injury (N17.9)
Leukocytosis (D72.829)
Cellulitis of left lower limb (L03.116)
Past History
Past History
ED Past Medical History: Arrthythmia and HTN
ED Past Surgical History: Orthopedic (Right knee replacement)
Patient has exhibited threatening behavior?: No
PSI?: No
Social History
Tobacco: Smoker
Alcohol: Occasional
Drug: None
Personal:
Living: with family
Employment: Employed
Family History
Family History: Negative CAD
Phy Exam
Physical Exam
Physical Exam:
.
Course
Orders/Labs/Results
Orders:
Orders
05/05/25 10:51
IV Insert/Care/Rem.- Treatment PRN
CR Knee - Left 4 Or More View* Urgent
Comment:
Reason For Exam: fall, pain left calf/knee
Tib/Fib, Left 2 View [CR Leg Tibia/fibula Left 2 Vw] Urgent
Comment:
Reason For Exam: fall, pain left calf/knee
Periph Venous Lwr Ext Left US [US Periph Venous LOWER Ext LT] Urgent
Comment:
Reason For Exam: left leg/calf pain
05/05/25 10:52
CR Chest - 2 Views Urgent
Comment:
Reason For Exam: chest pain after fall last night
05/05/25 10:55
Complete Blood Count/With Diff Urgent
Comprehensive Metabolic Panel Urgent
Troponin I Urgent
05/05/25 14:31
Troponin I Urgent
05/05/25 14:40
CeFAZolin 2 GRAM [Ancef] 2 grams in 10 ml IV NOW
05/05/25 14:45
Electrocardiogram (*1) Urgent
Reason for Study: Fatigue / Weakness
EKG- Treatment ONCE
05/05/25 Dinner
2000 calorie (17 carb) Diabetic
05/05/25 15:33
Admit/Transfer Patient As Directed
Co-Sign Provider:
Level of Care: Inpatient admission
Assign to:: Telemetry
Physician / Group: Monico
Diagnosis: LLE Cellitus
Reason for Telemetry: Arrhythmia
Date to Stop Telemetry: 05/08/25
Time to Stop Telemetry: 11:00
Reason for Hospitalization: IV abx
Expected length of stay greater than two midnights?: Yes
ELOS- Estimated Length of Stay in days: 3
I certify the patient meets the requirements for IP care: Yes
05/05/25 15:39
PRN Pain Medication Management As Directed
May give lesser potent ordered pain med per pt: Yes
preference::
Protocol:: Medication orders for pain may be administered in a
manner that supports deferring to patient preference
when the pt is:
- Requesting an ordered lesser potent pain medication.
Least to most potent pain medications are defined
as: acetaminophen < NSAID < tramadol < opioids
(morphine, oxycodone, hydromorphone).
- Requesting a lesser dose of the same medication IF
ORDERED.
- Requesting a less intrusive route of administration
if both routes are prescribed by the provider (PO <
IV).
05/05/25 15:40
Code Status As Directed
Resuscitation Status: Full Code
05/05/25 20:00
Troponin I Routine
05/08/25 11:00
DC Protocol for Telemetry ONCE
Abnormal Lab Results
05/05/25 05/05/25
10:55 14:31
WBC 12.4 H 10^3/uL
(4.8-10.8)
MCHC 32.2 L g/dL
(33.0-37.0)
Abs Immat Gran (auto) 0.1 H 10^3/uL
(0-0.05)
Absolute Neuts (auto) 10.5 H 10^3/uL
(1.4-6.5)
Absolute Lymphs (auto) 1.0 L 10^3/uL
(1.2-3.4)
Absolute Monos (auto) 0.7 H 10^3/uL
(0.1-0.6)
Immature Gran % 0.8 H %
(0-0.5)
Neutrophils % 84.6 H %
(42.2-75.2)
Lymphocytes % 7.9 L %
(20.5-51.1)
BUN 24 H mg/dl
(9-20)
Creatinine 1.4 H mg/dL
(0.7-1.3)
Glucose 123 H mg/dl
(70-99)
Alkaline Phosphatase 127 H U/L
(38-126)
Troponin I 0.045 H* ng/ml 0.038 H* ng/ml
05/05/25 10:55
05/05/25 10:55
Vital Signs
Initial and Last Documented VS:
Initial Vital Signs
Temp Pulse Resp BP Pulse Ox
97.7 F 61 16 140/58 93
05/05/25 10:35 05/05/25 10:35 05/05/25 10:35 05/05/25 10:35 05/05/25 10:35
Last Documented Vital Signs
Temp Pulse Resp BP Pulse Ox
97.7 F 66 17 174/94 92
05/05/25 10:35 05/05/25 16:15 05/05/25 16:15 05/05/25 14:30 05/05/25 16:00
*Pulse Oximetry
Patient hypoxic: no
*Critical Care Note
Total Time (30-74mins, 75-104mins- exclusive of procedures): Not Applicable
ED Attending Note
-
Portions of this chart may have been created with voice recognition software.� Occasional wrong word or��sound alike� substitutions may have occurred due to the inherent limitations of voice recognition software.
Discharge Plan
Departure
Patient Disposition: Admit
Date of Disposition: 05/05/25
Time of Disposition: 14:41
Admit to: Telemetry
Presentation/result/management discussed w/ accepting MD/DO: Hospitalist
Patient with high blood pressure during this ER visit?: Yes
Condition: Fair
Discharge Problem:
Cellulitis of left leg, TIFFANIE (acute kidney injury), Chest pain
Interventions
Interventions:
*Risk Screen - Suicide Last Done: 05/05/25 10:35
*General Assessment Last Done: 05/05/25 10:35
*Neglect/Abuse Screening Last Done: 05/05/25 10:35
*ED- Fall Risk Assessment Last Done: 05/05/25 10:35
ED-Musculoskeletal Assessment Last Done: 05/05/25 10:49
ED- Neurological Assessment Last Done: 05/05/25 10:35
ED-Skin Assessment Last Done: 05/05/25 10:49
[2025-05-05 11:15] LABS: Hematocrit 50.6 % (39.0-52.0); Hemoglobin 16.3 g/dL (13.0-18.0); Mean Corp Hgb Conc. 32.2 g/dL (33.0-37.0); Mean Corpuscular Volume 92.3 fL (80.0-94.0); Nucleated Red Blood Cells % 0 % (-); Platelet Count 226 10^3/uL (130-400); Red Cell Dist. Width 14.0 % (11.5-14.5)
[2025-05-05 11:24] LABS: ALT (SGPT) 20 U/L (0-50); AST (SGOT) 19 U/L (17-59); Albumin 3.7 g/dl (3.5-5.0); Alkaline Phosphatase 127 U/L (38-126); Blood Urea Nitrogen 24 mg/dl (9-20); Calcium 8.8 mg/dl (8.4-10.2); Carbon Dioxide 30 mmol/L (22-30); Chloride 104 mmol/L (98-107); Estimated Creatinine Clearance 65 ml/min; Glucose 123 mg/dl (70-99); Potassium 4.2 mmol/L (3.5-5.1); Sodium 137 mmol/L (135-145); Total Protein 7.0 g/dl (6.3-8.2); eGFR 53.07
[2025-05-05 11:39] LABS: Troponin I 0.045 ng/ml
--- NOTE | 2025-05-05 11:59 | PHANOTE ---
med rec note- [facility]
--- NOTE | 2025-05-05 14:47 | HPS.HSE ---
Addendum entered and electronically signed by Emma Marc MD 05/05/25 15:59:
This is an addendum to the H&P written by Connie Boykin on 05/05/2025. �Patient seen and examined independently with PA.
74-year-old male past medical history of hypertension, paroxysmal atrial fibrillation on Eliquis, CHF, prior pericardial effusion, COPD, tobacco use, diabetes, hyperlipidemia, obesity, peripheral neuropathy, superficial lower extremity wounds,
presenting with trip and fall with pain in the left lower extremity and right chest pain. �He has redness and swelling of the left lower extremity.
Vital signs show blood pressure 187/110. �On examination he has a bruise of the right chest.
Labs show leukocytosis of 12. �Creatinine of 1.4. �Troponin of 0.045, decreased to 0.038. �Chest x-ray shows linear densities within both lower lungs, stable compatible with linear atelectasis/scarring.
Patient with cellulitis left lower extremity. �Cefazolin.
Chest pain secondary to injury of the right chest with bruising visible. �Slight troponin elevation seems to be nonischemic, continue to trend. �Creatinine slightly elevated at 1.4, hold spironolactone and Jardiance.
Original Note:
Family Physician
-
Family Physician: Mariah Langley
Chief Complaint
-
Left Lower Extremity Pain
History of Present Illness
Patient is a 74 y/o male past medical history of A-Fib, CHF, ASCVD, DM, Neuropathy, COPD and GERD who presents with left lower extremity pain following a fall last night. Patient reports he consumed a large amount of alcohol last night and as a
result of intoxication he tripped over his walker while ambulating. He presents today with increasing left lower extremity pain as well as right sided chest pain from landing on the walker. Patient takes Eliquis for atrial fibrillation and notes a
bruise is starting to form on his left upper chest. He reports mild shortness of breath. He denies fevers, sweats or chills.
Medical History
Past Medical History
Past Medical History: Reports Other
Additional Past Medical History:
Paroxysmal Atrial Fibrillation
Chronic Heart Failure, unknown type
Atherosclerotic Cardiovascular Disease
Essential Hypertension
Hyperlipidemia
Diabetes Mellitus
Peripheral Neuropathy
COPD
GERD
Class II Obesity
Past Surgical History: Reports Other
Social History
Tobacco: Smoker (1 PPD)
Alcohol: Occasional
Family History
Family History: Not pertinent
Allergies / Home Medications
Allergies reflects when Allergies were last updated in [employer].
Home Medications with original date entered in [employer]
Allergy/Medication List:
Allergies
Allergy/AdvReac Type Severity Reaction Status Date / Time
bee venom protein (honey bee) Allergy Anaphylaxis Verified 05/05/25 10:40
Home Medications
magnesium oxide 400 mg (241.3 mg magnesium) tablet 420 mg PO DAILY Supplement 08/29/22
pregabalin 75 mg capsule 75 mg PO TID neuropathy 01/12/24
amitriptyline 25 mg tablet 25 mg PO HS Sleep 08/18/24
apixaban 5 mg tablet (Eliquis) 5 mg PO BID Blood Clot Prevention/Tx 08/18/24
atorvastatin 80 mg tablet 80 mg PO HS High Cholesterol 08/18/24
famotidine 20 mg tablet 20 mg PO DAILY Gastrointestinal Issue 02/07/25
spironolactone 25 mg tablet 25 mg PO DAILY Heart Failure 02/07/25
acetaminophen 500 mg tablet (Tylenol Extra Strength) 1,000 mg PO Q6H PRN mild pain 05/05/25
albuterol sulfate 90 mcg/actuation aerosol inhaler 2 puff inhalation Q4HPRN PRN shortness of breath 05/05/25
amiodarone 200 mg tablet 200 mg PO DAILY Arrhythmia 05/05/25
dextran 70-hypromellose eye drops in a dropperette (Artificial Tears (PF) drops in a dropperette) 1 drp BOTH EYES QIDPRN PRN dry eye 05/05/25
duloxetine 20 mg capsule,delayed release 20 mg PO DAILY neuropathy 05/05/25
empagliflozin 25 mg tablet 12.5 mg PO DAILY kidney failure 05/05/25
pantoprazole 40 mg tablet,delayed release 40 mg PO DAILY Gastrointestinal Issue 05/05/25
Review of Systems
-
A 12 point ROS was completed and negative except as noted: Yes
Constitutional: Denies Fever or Chills
Respiratory: Reports Trouble Breathing (Mild); Denies Cough
Cardiac: Denies Palpitations
Musculoskeletal: Reports See HPI
Physical Exam
Vital Signs
Vital Signs
Temp Pulse Resp BP Pulse Ox
97.7 F 69 16 187/110 92
05/05/25 10:35 05/05/25 14:15 05/05/25 14:15 05/05/25 14:00 05/05/25 14:15
Physical Exam
General: Comfortable and Conversant
HEENT: Anicteric and Moist mucous membranes
Respiratory: Wheezes (Few scattered ) and Non Labored Respirations
Cardiac: S1/S2, Regular Rhythm and Other (Area of redness / ecchymosis around right nipple at location of reported chest pain)
GI: Soft, Non Tender and Other (Protuberant)
Rectal: Deferred by Provider
Musculoskeletal: No Clubbing, No Cyanosis and No Edema
Skin: Other (Bilateral lower extremities are erythema with bilateral superficial ulcers. Left Lower extremity with increased warmth to touch compared to right)
Neuro: Awake, Alert, Oriented and Nonfocal/grossly intact
Psych: Calm
Laboratory Results
-
05/05/25 10:55
05/05/25 10:55
Laboratory Results
Total Bilirubin 0.6 mg/dl (0.2-1.3) 05/05/25 10:55
AST 19 U/L (17-59) 05/05/25 10:55
ALT 20 U/L (0-50) 05/05/25 10:55
Alkaline Phosphatase 127 U/L (38-126) H 05/05/25 10:55
Troponin I 0.045 ng/ml H* 05/05/25 10:55
Data Reviewed
-
Diagnostic Radiology: Report Reviewed by me
Ultrasound: Report Reviewed by me
Lab Data: Labs Reviewed by me
Old Records: Reviewed
Impression/Plan
-
Left Lower Extremity Cellulitis
-Continue Ancef
-Consult Wound Care
Acute Renal Insufficiency
-Hold spironolactone and empagliflozin
-Recheck labs in AM
Chest Pain, seems musculoskeletal following fall prior to admission
-Troponin is slightly elevated, but is trending down and likely non-ischemic
Paroxysmal Atrial Fibrillation
-Continue Eliquis for anticoagulation
-Continue amiodarone for rhythm control
Chronic Heart Failure, unknown type
-Hold spironolactone and empagliflozin
-Monitor Daily Weights
Atherosclerotic Cardiovascular Disease
-Continue atorvastatin
Diabetes Mellitus
-Continue empagliflozin
-Monitor sugars and continue coverage insulin
Peripheral Neuropathy
-Continue duloxetine and pregabalin
COPD, no acute exacerbation
-Continue DuoNeb PRN
GERD
-Continue Pepcid and Protonix
Class II Obesity due to Excess Calories
-Affects all aspects of care
-Encourage weight loss
Tobacco Use Disorder
-Encourage smoking cessation
-Continue Nicotine Patch
DVT proph: Eliquis
Code Status: Full Code
[2025-05-05 15:07] LABS: Troponin I 0.038 ng/ml
[2025-05-05] MEDS: ANCEF 10 IV ×2 (15:07→21:52)
--- NOTE | 2025-05-05 16:01 | EDCM ---
CM reviewed chart and met with pt bedside in ED. Lives with his SO Susy in 1 story home with ramp to enter.
Needs assistance with ADLs and personal care, Susy provides assistance. Ambulates with rollator although has not been able to ambulate due to pain in L leg. Sleeps in recliner lift chair.
[facility]
HX [facility], hx SNF at [facility] and .
PCP: Mariah Langley
[facility], also uses [facility] [address]
CM will continue to follow for all discharge planning needs.
--- NOTE | 2025-05-05 19:18 | PTCARENOTE ---
Received patient from ED AAOx3. Pt oriented to room. Offered no complaints. Made patient comfortable. Cont to assess patient status.
[2025-05-05] MEDS: ELIQUIS 5 MG PO (19:50)
[2025-05-05] MEDS: TYLENOL 1000 MG PO (19:57)
[2025-05-05 21:10] LABS: Troponin I 0.040 ng/ml
[2025-05-05 21:18] LABS: Glucose - Point of Care 123 mg/dl (70-99)
[2025-05-05] MEDS: LIPITOR 80 MG PO (21:52)
[2025-05-05] MEDS: ELAVIL 25 MG PO (21:52)
[2025-05-05] MEDS: LYRICA 75 MG PO (21:52)
[2025-05-06] VITALS (8 sets, daily range): BP systolic 137–187; BP diastolic 82–93; PULSE 69; O2SAT 94; BMI 35.6
[2025-05-06] MEDS: MELATONIN 3 MG PO ×2 (01:30→21:31)
[2025-05-06] MEDS: APRESOLINE 5 MG IV (01:30)
[2025-05-06 02:49] LABS: Troponin I 0.042 ng/ml
--- NOTE | 2025-05-06 04:08 | PTCARENOTE ---
Pt aaox3 able to make his needs known,on prn pain meds for leg pain. EHS ENGINEER [employer] application developer made aware of pt troponin level 0.042, pt sinus bridgette on monitor in 30-50 when sleeping & asymptomatic. q6hr troponin continued on pt.EKG done on pt & BUS AIDE aware of pt
BP range. Call powers in reach.Plan of care continued.
[2025-05-06] MEDS: DUONEB 3 ML INH (04:12)
[2025-05-06] MEDS: ANCEF 10 IV ×3 (05:34→21:30)
[2025-05-06] MEDS: TYLENOL 1000 MG PO ×2 (05:47→16:51)
[2025-05-06 07:38] LABS: Hematocrit 51.5 % (39.0-52.0); Hemoglobin 17.1 g/dL (13.0-18.0); Mean Corp Hgb Conc. 33.2 g/dL (33.0-37.0); Mean Corpuscular Volume 91.6 fL (80.0-94.0); Platelet Count 207 10^3/uL (130-400); Red Cell Dist. Width 14.2 % (11.5-14.5)
[2025-05-06 08:04] LABS: Blood Urea Nitrogen 23 mg/dl (9-20); Calcium 8.7 mg/dl (8.4-10.2); Carbon Dioxide 25 mmol/L (22-30); Chloride 105 mmol/L (98-107); Estimated Creatinine Clearance 82 ml/min; Glucose 111 mg/dl (70-99); Potassium 4.6 mmol/L (3.5-5.1); Sodium 137 mmol/L (135-145); eGFR > 60.00
[2025-05-06 08:07] LABS: Troponin I 0.033 ng/ml
[2025-05-06 08:07] LABS: Glucose - Point of Care 141 mg/dl (70-99)
[2025-05-06] MEDS: CYMBALTA DELAYED RELEASE 20 MG PO (08:08)
[2025-05-06] MEDS: PROTONIX 40 MG PO (08:08)
[2025-05-06] MEDS: PACERONE 200 MG PO (08:08)
[2025-05-06] MEDS: PEPCID 20 MG PO (08:09)
[2025-05-06] MEDS: ELIQUIS 5 MG PO ×2 (08:09→20:03)
[2025-05-06] MEDS: NICODERM TRANSDERMAL 14 MG TRANSDERM (08:09)
[2025-05-06] MEDS: LYRICA 75 MG PO ×3 (08:09→21:30)
--- NOTE | 2025-05-06 09:01 | W.PN.HOSP.TC ---
Today's Communication/Plan
-
Antibiotics
Compression wraps
Cardiology consult
PT consult
Assessment / Plan
Assessment / Plan
Gen-AAOx3, NAD, obese
HEENT-NC, AT, anicteric, clear oral mm
Neck-supple
CV-reg, no M, +S1/S2
Lungs-clear B/L
Abd-soft, NT, ND
Ext-nonpitting bilateral lower extremity edema
Musculoskeletal-no cyanosis, clubbing
Skin-warm and dry, bilateral lower extremity hyperpigmentation and superficial wounds
Neuro-grossly non-focal
Psych-calm, cooperative
Mild left lower extremity cellulitis -in the setting of chronic lower extremity venous stasis dermatitis. Continue cefazolin for now. Convert to Keflex on discharge.
Afebrile, leukocytosis resolved.
Bilateral lower extremity venous stasis dermatitis -recommend smoking cessation, weight loss. Compression therapy with Keegan wraps. Discussed with patient.
Bilateral lower extremity wounds likely venous stasis wounds. Wound care consulted.
Patient had SEAN done October 2022 that was essentially normal in both lower extremities. Calcified and soft plaque noted throughout.
TIFFANIE -possibly due to volume depletion. Improved. Spironolactone on hold.
Tobacco dependence -cessation advised.
Transient chest pain -resolved. Troponin elevated on admission but trended down. Patient is a vague historian, unclear timing of chest pain in relation to fall. Consult cardiology.
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
Paroxysmal atrial fibrillation -on amiodarone, Eliquis.
Chronic heart failure unknown type
Essential hypertension -uncontrolled. Only appears to be on spironolactone for blood pressure. Will add Procardia.
Hyperlipidemia -atorvastatin.
DM 2 without hyperglycemia -only on empagliflozin at home. Continue sliding scale insulin.
COPD without exacerbation
GERD
Obesity due to excess calories
Full code
Anticipated Discharge: Within 24 hours
Subjective/Interval History
-
Date of Service: May 06, 2025
Patient seen and examined. Complaining of left calf pain.
Objective Data
-
Labs:
Laboratory Results
05/06/25
07:17
WBC 9.3
Hgb 17.1
Hct 51.5
Plt Count 207
Sodium 137
Potassium 4.6
Chloride 105
Carbon Dioxide 25
BUN 23 H
Creatinine 1.1
Glucose 111 H
Calcium 8.7
Vital Signs:
Vital Signs
Temp Pulse Resp BP Pulse Ox
97.7 F 55 20 176/87 95
05/06/25 03:00 05/06/25 08:08 05/06/25 04:15 05/06/25 08:08 05/06/25 07:58
I&O
05/05/25 05/06/25 05/07/25
06:59 06:59 06:59
Output Total 900 / 900
Balance -900 / -900
Review of Systems
-
History Source: Patient
All other systems: Reviewed and negative
--- NOTE | 2025-05-06 09:45 | CON.CAR ---
Addendum entered and electronically signed by Cathy Damian MD 05/06/25 13:17:
Patient was evaluated on personally. I agree with the plan and physical examination documented below and discussed personally with the nurse petitioner.
74-year-old gentleman with paroxysmal atrial fibrillation on amiodarone with recent A-fib/flutter ablation at outside hospital presented with fall and was noted to have severe conduction disease abnormalities including first-degree AV block and
sinus bradycardia with Wenckebach in his 50s. Patient also has bifascicular block on the EKG.
At this time patient is at high risk for conduction abnormalities and severe bradycardia. Patient's current issues of fall could be related to his Abnormalities.
Patient chest pain appears to be noncardiac especially after fall and injury to chest wall. Trend troponin to make sure no significant elevation is noted. Continue to hold spironolactone for TIFFANIE.
With patient's bradycardia, we will hold amiodarone as well.
If significant bradycardia noted, patient can be transferred to telemetry floor/IVU. He may need transcutaneous pacing. If there was persistent bradycardia noted, we may need temporary wire. At this time patient is asymptomatic with his
bradycardia and we will continue to monitor.
Hold amiodarone. Plan for pacemaker on Thursday if possible.
Original Note:
Consultation
Consultation Request
Date/Time Consultation Requested: 05/06/2025 09:15
Date/Time Consultation Performed: 05/06/2025 09:45
Requesting Provider: Dr. Bernard
Performing Provider: MATTHEW Singh for Dr. Damian
Reason for Consultation: Chest pain
Medical History
-
Chief Complaint: Fall
History of Present Illness:
Damon Holman is a 74-year-old male (followed by cardiology at the [facility]), with paroxysmal atrial fibrillation (on amiodarone and apixaban), atrial fibrillation (type unknown), recovered nonischemic cardiomyopathy, hypertension, hypercholesterolemia,
bifascicular block, PAD, prior DVT, current smoker, and advanced COPD who presented with LLE discomfort after a fall. He is having chest pain.
Past Medical History
Past Medical History: Arrhythmias (Paroxysmal atrial fibrillation, atrial flutter [type unknown]), CHF (Recovered nonischemic cardiomyopathy), COPD, GERD, HTN, Hypercholesterolemia and Other (Bifascicular block, prior DVT, PAD)
Social History
Tobacco: Smoker
Alcohol: Occasional
Employment: Retired
Allergies / Home Medications
Allergy/AdvReac Type Severity Reaction Status Date / Time
bee venom protein (honey bee) Allergy Anaphylaxis Verified 05/05/25 10:40
�Medication �Instructions �Recorded �Confirmed �Type
magnesium oxide 400 mg (241.3 mg 420 mg PO DAILY Supplement 08/29/22 05/05/25 History
magnesium) tablet
pregabalin 75 mg capsule 75 mg PO TID neuropathy 01/12/24 05/05/25 History
amitriptyline 25 mg tablet 25 mg PO HS Sleep 08/18/24 05/05/25 History
apixaban 5 mg tablet (Eliquis) 5 mg PO BID Blood Clot 08/18/24 05/05/25 History
Prevention/Tx
atorvastatin 80 mg tablet 80 mg PO HS High Cholesterol 08/18/24 05/05/25 History
famotidine 20 mg tablet 20 mg PO DAILY Gastrointestinal 02/07/25 05/05/25 History
Issue
spironolactone 25 mg tablet 25 mg PO DAILY Heart Failure 02/07/25 05/05/25 History
acetaminophen 500 mg tablet 1,000 mg PO Q6H PRN mild pain 05/05/25 05/05/25 History
(Tylenol Extra Strength)
albuterol sulfate 90 mcg/actuation 2 puff inhalation Q4HPRN PRN 05/05/25 05/05/25 History
aerosol inhaler shortness of breath
amiodarone 200 mg tablet 200 mg PO DAILY Arrhythmia 05/05/25 05/05/25 History
dextran 70-hypromellose eye drops 1 drp BOTH EYES QIDPRN PRN dry eye 05/05/25 05/05/25 History
in a dropperette (Artificial Tears
(PF) drops in a dropperette)
duloxetine 20 mg capsule,delayed 20 mg PO DAILY neuropathy 05/05/25 05/05/25 History
release
empagliflozin 25 mg tablet 12.5 mg PO DAILY kidney failure 05/05/25 05/05/25 History
pantoprazole 40 mg tablet,delayed 40 mg PO DAILY Gastrointestinal 05/05/25 05/05/25 History
release Issue
Physical Exam
Vital Signs
Temp Pulse Resp BP Pulse Ox
98.2 F 55 20 176/87 95
05/06/25 07:00 05/06/25 08:08 05/06/25 07:00 05/06/25 08:08 05/06/25 07:58
Lab Results
05/06/25 07:17
05/06/25 07:17
Troponin I Cancelled 05/06/25 19:15
Impression / Plan
-
I/P: 74M with paroxysmal atrial fibrillation (on amiodarone and apixaban), atrial fibrillation (type unknown), recovered nonischemic cardiomyopathy, hypertension, hypercholesterolemia, bifascicular block, PAD, prior DVT, current smoker, and advanced
COPD who presented with discomfort after a fall.
Primary nurse practical: Dr. Shah at [facility] ([facility])
Chest pain
- Right side, behind right breast tissue, worse with palpation, started after mechanical fall
- No exertional symptoms
Abnormal troponin, nonischemic myocardial injury in the setting of chest contusion & TIFFANIE
- Peak troponin on presentation, 0.045
- EKG without significant ST abnormality, bifascicular block
NICM, recovered
- He does not appear to be in acute/decompensated heart failure
- Spironolactone on hold with TIFFANIE, now resolved, continue SGLT2i
- Trend weight during admission
Hypertension, uncontrolled
- Procardia added by primary service
Bifascicular block with Wenckebach and fall
Paroxysmal atrial fibrillation
Atrial flutter type unknown
- Sinus rhythm with bifascicular block on amiodarone, he was on sotalol in the past
- He reports having a cardiac ablation, he thinks October?
- [facility] ([facility], TSH, LFTs, eye exams)
- Oral anticoagulation: Apixaban 5 mg twice daily
LLE cellulitis, per primary, on Ancef
PAD, on atorvastatin, he should stop smoking
Prior DVT, on apixaban for PAF
COPD, no acute exacerbation
Current smoker, full cessation recommended obesity, he would benefit from weight loss
Data Reviewed
-
EKG: Report Reviewed by me
Radiology: Report Reviewed by me
Labs: Labs Reviewed by me
Old Records: Reviewed
[2025-05-06] MEDS: PROCARDIA XL (EXTENDED RELEASE) 30 MG PO (09:50)
[2025-05-06 12:19] LABS: Glucose - Point of Care 95 mg/dl (70-99)
[2025-05-06 12:20] LABS: Glycohemoglobin (HgbA1c) 6.5 % (4.0-5.6)
[2025-05-06] MEDS: FLUSH (NSS) 1 FLUSH IV (14:17)
--- NOTE | 2025-05-06 16:11 | PTCARENOTE ---
Pt AAO x3, SHAFFER; OOB to chair with assist x2; c/o discomfort at times when moving legs. VSS. Telemetry:NSR with first degree AVB; occ bridgette to 30's with junctional rhythm. Pt denies dizziness w/OOB activity. Pt keeping BLE elevated d/t edema. On
room air- pulse ox 94%, no SOB noted. Abd obese, firm, gina PO well. Voiding mod amts clear yellow urine in urinal. SARAH wraps intact to BLE. Resting in chair at present, no c/o. Will continue to monitor.
[2025-05-06 16:57] LABS: Glucose - Point of Care 134 mg/dl (70-99)
[2025-05-06 17:21] LABS: TSH 1.23 uIU/ml (0.47-4.68)
[2025-05-06] MEDS: LIPITOR 80 MG PO (21:30)
[2025-05-06] MEDS: ELAVIL 25 MG PO (21:31)
[2025-05-06 21:46] LABS: Glucose - Point of Care 140 mg/dl (70-99)
[2025-05-07 03:14] VITALS: BP 155/79
--- NOTE | 2025-05-07 04:51 | PTCARENOTE ---
Pt sleeping well overnight. No issue to report. HR in the 40's SB on the monitor when sleeping. Pt denies any complaints. Will continue to monitor.
[2025-05-07 06:00] VITALS: BMI 35.0
[2025-05-07] MEDS: ANCEF 10 IV ×3 (06:05→22:06)
[2025-05-07 07:44] VITALS: BP 117/86
[2025-05-07] MEDS: PROCARDIA XL (EXTENDED RELEASE) 30 MG PO (07:44)
[2025-05-07] MEDS: PROTONIX 40 MG PO (07:45)
[2025-05-07] MEDS: PEPCID 20 MG PO (07:45)
[2025-05-07] MEDS: ELIQUIS 5 MG PO ×2 (07:45→22:06)
[2025-05-07] MEDS: LYRICA 75 MG PO ×3 (07:45→22:07)
[2025-05-07] MEDS: NICODERM TRANSDERMAL 14 MG TRANSDERM (07:45)
[2025-05-07] MEDS: CYMBALTA DELAYED RELEASE 20 MG PO (07:45)
[2025-05-07] MEDS: REMOVE NICOTINE PATCH 1 PATCH REMOVE (07:49)
--- NOTE | 2025-05-07 08:31 | W.PN.CD ---
Today's Communication / Plan
-
- NPO after midnight
- PPM tomorrow.
Impression / Plan
-
I/P: 74M with paroxysmal atrial fibrillation (on amiodarone and apixaban), atrial fibrillation (type unknown), recovered nonischemic cardiomyopathy, hypertension, hypercholesterolemia, bifascicular block, PAD, prior DVT, current smoker, and advanced
COPD who presented with discomfort after a fall.
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 Shah at [place] ([place])
Bradycardia.
- Bifascicular block with Wenckebach at heart rate in 50s and fall
- Significant bradycardia noted.
- Severe conduction disease
- Bradycardia - improved today
- Plan for PPM tomorrow.
- Hold Amiodarone for now. Not on BB or any other CCB at this time.
Chest pain
- Right side, behind right breast tissue, worse with palpation, started after mechanical fall
- No exertional symptoms
- Trop is stable around 0.045
- Likely related to severe conduction disease and non ME trop leak.
- Chest pain free now.
- nonischemic myocardial injury in the setting of chest contusion & TIFFANIE
- Peak troponin on presentation, 0.045
- EKG without significant ST abnormality, bifascicular block
NICM, recovered
- He does not appear to be in acute/decompensated heart failure
- Spironolactone on hold with TIFFANIE, now resolved, continue SGLT2i
- Trend weight during admission
Hypertension, uncontrolled
- Procardia added by primary service
Paroxysmal atrial fibrillation
Atrial flutter type unknown
- Sinus rhythm with bifascicular block on amiodarone, he was on sotalol in the past
- He reports having a cardiac ablation, he thinks October? at outside facility.
- Long-term amiodarone management per [facility] (PFTs, TSH, LFTs, eye exams)
- Oral anticoagulation: Apixaban 5 mg twice daily
LLE cellulitis, per primary, on Ancef
PAD, on atorvastatin, he should stop smoking
Prior DVT, on apixaban for PAF
COPD, no acute exacerbation
Current smoker, full cessation recommended obesity, he would benefit from weight loss
Physical Exam
Vital Signs/Labs
Vital Signs
Temp Pulse Resp BP Pulse Ox
97.5 F 60 20 117/86 93
05/07/25 07:44 05/07/25 07:44 05/07/25 07:44 05/07/25 07:44 05/07/25 07:44
05/06/25 05/07/25 05/08/25
06:59 06:59 06:59
Actual Weight 122.498 kg 120.4 kg
05/06/25 07:17
05/06/25 07:17
TSH 1.23 uIU/ml (0.47-4.68) 05/06/25 07:17
LAB Results
05/05/25 05/05/25 05/05/25
10:55 14:31 20:26
Troponin I 0.045 H* 0.038 H* 0.040 H*
05/06/25 05/06/25 05/06/25
01:49 07:17 13:15
Troponin I 0.042 H* 0.033 Cancelled
05/06/25
19:15
Troponin I Cancelled
Physical Exam
Constitutional: No acute distress and Comfortable
EENT: Anicteric and Moist mucous membranes
Cardiovascular: Rhythm & rate is regular, JVD pressure is normal, Pedal edema present and Systolic murmur present
Respiratory: Respiratory effort normal and Lungs clear to auscul.
GI: Soft and Normal bowel sounds
Neuro/Psych: Alert, Oriented and AO x 3
Other: Skin (erythema both legs with wounds.)
Data Reviewed
-
Date of Service: May 07, 2025
Medical Decision Making: Reviewed Test Results, Test Interpretation and Review of Case with other Provider
EKG: Tracing Personally Visualized and interpreted
Echo: Report Reviewed by me
Labs: Labs Reviewed by me
Old Records: Reviewed
[2025-05-07] MEDS: DUONEB 3 ML INH (09:49)
--- NOTE | 2025-05-07 09:54 | PTCARENOTE ---
Pt sitting up in chair, c/o feeling SOB. RR 22, sating 94% on RA. LS diminished w/ slight exp wheeze. RT called for breathing treatment.
--- NOTE | 2025-05-07 09:56 | W.PN.HOSP.TC ---
Today's Communication/Plan
-
N.p.o. after midnight
Assessment / Plan
Assessment / Plan
Gen-AAOx3, NAD, obese
HEENT-NC, AT, anicteric, clear oral mm
Neck-supple
CV-reg, no M, +S1/S2
Lungs-mild bilateral expiratory wheezing
Abd-soft, NT, ND
Ext-nonpitting bilateral lower extremity edema
Musculoskeletal-no cyanosis, clubbing
Skin-warm and dry, bilateral lower extremity hyperpigmentation and superficial wounds
Neuro-grossly non-focal
Psych-calm, cooperative
Fall -prior to admission. Unclear etiology (mechanical fall?) but conduction disease may be playing a role according to cardiology.
Bradycardia -noted on monitor. Amiodarone discontinued. Cardiology anticipates permanent pacemaker placement on Tuesday 05/08. Plan to hold Eliquis in the morning according to cardiology.
Mild left lower extremity cellulitis -in the setting of chronic lower extremity venous stasis dermatitis. Continue cefazolin for now. Convert to Keflex on discharge.
Afebrile, leukocytosis resolved.
Bilateral lower extremity venous stasis dermatitis -recommend smoking cessation, weight loss. Compression therapy with Keegan wraps. Discussed with patient.
Bilateral lower extremity wounds likely venous stasis wounds. Wound care consulted.
Patient had SEAN done October 2022 that was essentially normal in both lower extremities. Calcified and soft plaque noted throughout.
TIFFANIE -possibly due to volume depletion. Improved. Spironolactone on hold.
Tobacco dependence -cessation advised.
Transient chest pain -resolved. Troponin elevated on admission but trended down. Patient is a vague historian, unclear timing of chest pain in relation to fall.
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.
Cardiology following.
Paroxysmal atrial fibrillation -on amiodarone, Eliquis. Cardiology recommends holding Eliquis tomorrow morning in preparation for pacemaker.
Chronic heart failure unknown type -stable.
Essential hypertension -uncontrolled. Only appears to be on spironolactone for blood pressure. Procardia added with improvement in pressures.
Hyperlipidemia -atorvastatin.
DM 2 without hyperglycemia -only on empagliflozin at home. Continue sliding scale insulin.
COPD without exacerbation -mild wheezing on exam. Continue inhalers.
GERD
Obesity due to excess calories
Full code
Anticipated Discharge: > 48 hours
Subjective/Interval History
-
Date of Service: May 07, 2025
Patient seen and examined, no new complaints.
Objective Data
-
Vital Signs:
Vital Signs
Temp Pulse Resp BP Pulse Ox
97.5 F 60 20 117/86 94
05/07/25 07:44 05/07/25 07:44 05/07/25 07:44 05/07/25 07:44 05/07/25 09:53
I&O
05/06/25 05/07/25 05/08/25
06:59 06:59 06:59
Intake Total 1560 / 1560
Output Total 900 / 900 3100 / 3100
Balance -900 / -900 -1540 / -1540
Review of Systems
-
History Source: Patient
All other systems: Reviewed and negative
[2025-05-07 11:00] VITALS: BP 166/85
[2025-05-07 11:33] LABS: Glucose - Point of Care 103 mg/dl (70-99)
[2025-05-07] MEDS: TYLENOL 1000 MG PO (13:27)
[2025-05-07 15:00] VITALS: BP 172/89
[2025-05-07 19:21] VITALS: BP 156/77
[2025-05-07 21:21] LABS: Glucose - Point of Care 120 mg/dl (70-99)
[2025-05-07] MEDS: LIPITOR 80 MG PO (22:07)
[2025-05-07] MEDS: ELAVIL 25 MG PO (22:07)
[2025-05-07] MEDS: MELATONIN 3 MG PO (22:08)
[2025-05-07 23:26] VITALS: BP 165/88
[2025-05-08] VITALS (14 sets, daily range): BP systolic 125–181; BP diastolic 67–98; BMI 35.1
[2025-05-08] MEDS: ANCEF 10 IV ×2 (05:26→21:48)
[2025-05-08] MEDS: FLUSH (NSS) 2 FLUSH IV (05:27)
[2025-05-08 06:06] LABS: Glucose - Point of Care 100 mg/dl (70-99)
[2025-05-08] MEDS: CYMBALTA DELAYED RELEASE 20 MG PO (07:55)
[2025-05-08] MEDS: PROCARDIA XL (EXTENDED RELEASE) 30 MG PO (07:55)
[2025-05-08] MEDS: NICODERM TRANSDERMAL 14 MG TRANSDERM (07:56)
[2025-05-08] MEDS: LYRICA 75 MG PO ×3 (07:56→21:47)
[2025-05-08] MEDS: PROTONIX 40 MG PO (07:56)
[2025-05-08] MEDS: PEPCID 20 MG PO (07:56)
[2025-05-08] MEDS: REMOVE NICOTINE PATCH 1 PATCH REMOVE (07:57)
[2025-05-08] MEDS: FLUSH (NSS) 1 FLUSH IV (07:57)
[2025-05-08] MEDS: TYLENOL 1000 MG PO ×2 (10:07→18:05)
[2025-05-08 11:44] LABS: Glucose - Point of Care 103 mg/dl (70-99)
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
--- NOTE | 2025-05-08 14:20 | W.PN.HOSP.TC ---
Today's Communication/Plan
-
apprec wound care
cont ABX
for pacer sometime today
PT/OT
Assessment / Plan
Assessment / Plan
pt is a 74 year old male
Fall -prior to admission. Unclear etiology (mechanical fall?) but conduction disease may be playing a role according to cardiology--PT/OT
Bradycardia--noted on monitor. Amiodarone discontinued. Cardiology anticipates permanent pacemaker placement on Tuesday 05/08. Plan to hold Eliquis in the morning according to cardiology.
Mild left lower extremity cellulitis/ulcers in the setting of chronic lower extremity venous stasis dermatitis. Continue cefazolin for now. Convert to Keflex on discharge.
Bilateral lower extremity venous stasis dermatitis -recommend smoking cessation, weight loss. Compression therapy with Keegan wraps. Discussed with patient.Bilateral lower extremity wounds likely venous stasis wounds. Wound care consulted--Patient
had SEAN done October 2022 that was essentially normal in both lower extremities. consider repeating SEAN-- Calcified and soft plaque noted throughout.
TIFFANIE -possibly due to volume depletion. Improved. Spironolactone on hold.
Tobacco dependence -cessation advised.
Transient chest pain -resolved. Troponin elevated on admission but trended down. Patient is a vague historian, unclear timing of chest pain in relation to fall. 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 Cardiology following.
Paroxysmal atrial fibrillation --on amiodarone, Eliquis. Cardiology recommends holding Eliquis tomorrow morning in preparation for pacemaker.
Chronic heart failure unknown type -stable.
Essential hypertension -uncontrolled. Only appears to be on spironolactone for blood pressure. Procardia added with improvement in pressures.
Hyperlipidemia -atorvastatin.
DM 2 without hyperglycemia -only on empagliflozin at home. Continue sliding scale insulin.
COPD without exacerbation -mild wheezing on exam. Continue inhalers.
GERD
Obesity due to excess calories
Full code
Anticipated Discharge: 24 - 48 hours
Subjective/Interval History
-
Date of Service: May 08, 2025
pt c/o bilateral leg pains not relieved with tylenol
Objective Data
-
Vital Signs:
max temp for 24 hours
05/08/25
03:15
Temp 97.5 F
Vital Signs
Temp Pulse Resp BP Pulse Ox
97.8 F 56 20 160/67 95
05/08/25 11:00 05/08/25 11:00 05/08/25 11:00 05/08/25 11:00 05/08/25 11:00
I&O
05/07/25 05/08/25 05/09/25
06:59 06:59 06:59
Intake Total 1560 / 1560 1080 / 1080
Output Total 3100 / 3100 2445 / 2445
Balance -1540 / -1540 -1365 / -1365
Review of Systems
-
All other systems: Reviewed and negative
Musculoskeletal: Reports Other (bilateral leg pain)
Physical Exam
-
General: Well Developed, Well Nourished and No Apparent Distress
HEENT: Normocephalic and Atraumatic; Negative Oxygen
Respiratory: Clear to Auscultation; Negative Wheezes or Rhonchi
Cardiac: Regular Rhythm and S1/S2
GI: Soft, Nontender, Nondistended and Normal Bowel Sounds
Musculoskeletal: No Clubbing, No Cyanosis, No Edema and Other (legs wrapped but pictures from wound care reviewed)
[2025-05-08] MEDS: TYLENOL PO (14:22)
--- NOTE | 2025-05-08 15:03 | W.PN.CD ---
Today's Communication / Plan
-
- PPM today
Impression / Plan
-
I/P: 74M with paroxysmal atrial fibrillation (on amiodarone and apixaban), atrial fibrillation (type unknown), recovered nonischemic cardiomyopathy, hypertension, hypercholesterolemia, bifascicular block, PAD, prior DVT, current smoker, and advanced
COPD who presented with discomfort after a fall.
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 Shah at [facility] ([place])
Bradycardia.
- Bifascicular block with Wenckebach at heart rate in 50s and fall
- Significant bradycardia noted.
- Severe conduction disease
- Bradycardia - improved but high risk of AV block
- Plan for PPM today.
- Hold Amiodarone for now. Not on BB or any other CCB at this time.
Chest pain
- Right side, behind right breast tissue, worse with palpation, started after mechanical fall
- No exertional symptoms
- Trop is stable around 0.045
- Likely related to severe conduction disease and non DC trop leak.
- Chest pain free now.
- nonischemic myocardial injury in the setting of chest contusion & TIFFANIE
- Peak troponin on presentation, 0.045
- EKG without significant ST abnormality, bifascicular block
NICM, recovered
- He does not appear to be in acute/decompensated heart failure
- Spironolactone on hold with TIFFANIE, now resolved, continue SGLT2i
- Trend weight during admission
Hypertension, uncontrolled
- Procardia added by primary service
Paroxysmal atrial fibrillation
Atrial flutter type unknown
- Sinus rhythm with bifascicular block on amiodarone, he was on sotalol in the past
- He reports having a cardiac ablation, he thinks October? at outside facility.
- Long-term amiodarone management per [facility] (PFTs, TSH, LFTs, eye exams)
- Oral anticoagulation: Apixaban 5 mg twice daily
LLE cellulitis, per primary, on Ancef
PAD, on atorvastatin, he should stop smoking
Prior DVT, on apixaban for PAF
COPD, no acute exacerbation
Current smoker, full cessation recommended obesity, he would benefit from weight loss
Physical Exam
Vital Signs/Labs
Vital Signs
Temp Pulse Resp BP Pulse Ox
97.8 F 56 20 160/67 95
05/08/25 11:00 05/08/25 11:00 05/08/25 11:00 05/08/25 11:00 05/08/25 11:00
05/07/25 05/08/25 05/09/25
06:59 06:59 06:59
Actual Weight 120.4 kg 120.712 kg
05/06/25 07:17
05/06/25 07:17
TSH 1.23 uIU/ml (0.47-4.68) 05/06/25 07:17
LAB Results
05/05/25 05/05/25 05/06/25
14:31 20:26 01:49
Troponin I 0.038 H* 0.040 H* 0.042 H*
05/06/25 05/06/25 05/06/25
07:17 13:15 19:15
Troponin I 0.033 Cancelled Cancelled
Physical Exam
Constitutional: No acute distress and Comfortable
EENT: Anicteric and Moist mucous membranes
Cardiovascular: Rhythm & rate is regular, Pedal edema present and JVD present
Respiratory: Respiratory effort normal, Wheeze Absent and Crackles Absent
GI: Soft, Non tender and Normal bowel sounds
Neuro/Psych: Alert, Oriented and AO x 3
Other: Skin (Lower ex ccellulitis)
Data Reviewed
-
Date of Service: May 08, 2025
Medical Decision Making: Reviewed Test Results, Test Interpretation and Review of Case with other Provider
EKG: Tracing Personally Visualized and interpreted
Labs: Labs Reviewed by me
Old Records: Reviewed
--- NOTE | 2025-05-08 15:05 | ITS.CL.PACE ---
Script Girl - Pacemaker Implant
Pacemaker Implant
Procedure Report:
Conduction system pacing Permanent Pacemaker Placement:
Mr. Holman is a 74 yrs old woman with severe conduction disease, symptomatic bradycardia and fall with high degree intermittent complete heart block is in need for a PPM. Patient is left-handed individual but preferred to have the pacemaker on the
left side
Indications:
High degree heart block with symptomatic bradycardia with severe conduction disease
Date of the Procedure:
05/08/25
Pre-Operative Diagnosis: High degree heart block with symptomatic bradycardia with severe conduction disease
Post-Operative Diagnosis: High degree heart block with symptomatic bradycardia with severe conduction disease
Procedure Performed: Conduction system pacing permanent pacemaker
Performing Physician:
Cathy Damian MD
Anesthesia:
See anesthesia report.
Detailed Description of the Procedure:
The patient was identified using hospital identification and informed consent obtained for the procedure. The risks were explained to the patient and the family including, but not limited to: Bleeding, infection, arrhythmia, stroke,
vascular/cardiac/lung puncture, surgery, pacemaker dependency/device malfunction. All questions were answered.
A surgical pause was performed in accordance with hospital regulations. Anesthesia service provided sedation as reported separately. Antibiotics administered IV for risk of bacterial colonization. After obtaining informed and written consent, the
patient was brought to the electrophysiology laboratory.
The initial rhythm was normal sinus rhythm.
The procedure site was meticulously prepared with surgical scrub and allowed to dry with no pooling. Sterile draping was applied to cover the procedure site. The image intensifier was draped with sterile bag and positioned over the patient.
A surgical pause and time out was performed immediately prior to the procedure with review of her medical history, recent labs, allergies and medications with site of procedure identified and consent noted in the chart. Antibiotics pre operatively
given. All team members concurred.
The left infraclavicular region was prepped and draped in the usual sterile fashion. Local anesthesia was administered subcutaneously using 1% lidocaine / Bupivacaine. The left cephalic vein cutdown was performed with an incision at the
delto-pectoral groove, and vascular sheath was introduced for lead access.
A subcutaneous pocket was created with blunt dissection and use of electrocautery. Hemostasis was excellent.
The guide wire was advanced to the RA and was advanced to the RV. The preformed curved long hemostatic peel away HIS sheath was advanced into the RV cavity. A left bundle pacing wire was advanced into the sheath to the tip with ventricular signals
noted with unipolar manner.
The HIS location was identified under guidance of the fluoroscopy and the pacing wire signals. The sheath with the pacing lead was moved deeper into the RV cavity on the septum at a more inferior and distal to the HIS signals.
There was sheath approximation confirmed on SLOVAK view. Once adequate signals were noted on the electrograms of the pacing lead in the sheath with W pattern signals on the RV septum, the lead was advanced and clockwise turns were done under
fluoroscopic guidance. The septum was engaged and the lead was paced intermittently after every 2-3 turns. The Impedance of the lead was measured that remained stable around 1000 Ohm. The lead was paced and septal pacing was noted. The sheath was
placed again to the septum and the lead was advanced 2-3 turns with pacing with each advancement. The ventricular capture was monitored throughout and the captures gradually changed from RV pacing to non-selective pacing to LBB pacing with R wave on
V1 morphology. �
The long guiding sheath was cut and removed from the RV without change in lead position, impedance, sensing, or capture. The lead was sutured to the underlying pectoralis fascia with 2-0 Ethibond stitches.
Then the attention was given to atrial lead. Atrial active lead was placed in the RA and into the RAA with active-fixation. There were excellent impedance and thresholds.
The leads were attached to the pulse generator in standard configuration with acceptable sensing and threshold parameters. The pocket was irrigated with antibiotic solution; the pocket was inspected with no active bleeding noted. The device and the
leads were placed in the pocket.
The pocket was rinsed with antibiotics soaked solution. A Tyrx pouch was placed around the PPM and the leads.
Deep subcutaneous tissues were closed with three layers of 2-0 V loc sutures; and the dermis was reopposed using a running 4-0 VLoc subcuticular suture.
Sponge counts / sharp counts were appropriate.
Procedure End:
The procedure was tolerated well. Aquacel bandaged was applied.
Estimated Blood loss:
5 cc
Specimens Removed:
No cultures and no specimens were obtained. No intraoperative pathology was identified.
Urine output:
None
Packs / Drains/ Tubes:
None
Instrument / Sponge Count Correct:
Yes
Flouro time:
2.3min / 4.77 Gycm2
Complications of the Procedure:
None
Condition of Patient at Time of Transfer:
Hemodynamically stable with no neurological or vascular compromise.
Device information:�
Generator: [employer]; Model: W1DR01; Serial # [id number]�
����������� RA pacing lead: [employer]; Model: 5076-52; Serial # [id number]
����������� Measured data on the RV lead was sensing of 2.0 mV, impedance of 817 ohms and threshold of 1.5 V at 0.4ms. �
����������� RV LBB pacing lead: [employer]tronic; Model: 3830-69; Serial # [id number]
����������� Measured data on the RV lead was sensing of 18mV, impedance of 874 ohms and threshold of 0.75 V at 0.4ms�
PROGRAMMING PARAMETERS:�
Den parameter settings were DDDR 60-130 �
����������� Paced AV interval: 180ms
����������� Sensed AV interval: 150 ms.
����������� Rate Adaptive A-V Interval: on
����������� Mode switch ON
�
Summary:
Successful implantation of MRI compatible dual chamber conduction system pacing permanent pacemaker.
Results/Recommendations:
-Please follow up CXR�
1. Please provide patient with adequate pain control�
Instructions to be given to patient:�
- Please follow up with [facility] at [address] [place] [address] ([phone]) to get your wound checked in 2 weeks of your discharge. Then follow with
- Do not wet incision site until after it is evaluated at cardiology clinic. No baths or showers until then. Sponge baths / showers are OK but dab dry the dressing after it is wet.�
- Allow 'steri strips' to fall off on their own�
- Do not lift left elbow above shoulder, particularly with sudden jerking movements, for 1 month�
- Do not lift anything weighing more than 5 pounds with the left arm for 1 month�
- If you notice any fevers, shortness of breath, lightheadedness, chest pain, or worsening swelling in the wound site, please contact the arrhythmia clinic, contact your forestry aid technician, or present to the hospital for evaluation.�
Cathy Damian MD
Electrophysiology
[2025-05-08] MEDS: ANCEF IV (15:22)
--- NOTE | 2025-05-08 15:24 | PTCARENOTE ---
Received pt from labor representative via bed s/p pacer placement; accompanied by labor representative RN's x2. pt drowsy but arousable; SHAFFER weakly. VSS. Telemetry:NSR with first degree AVB. EKG done upon arrival to unit. Lt ACW pacer site dsg D/I; Lt UE sling in
place; circ/neuro check to LUE WNL. Room air pule ox 88%; placed on nc 2 lpm- pulse ox 97%, pt denies SOB; has sonorous resp at times. Occ loose, non-productive cough. Abd obese, soft, to start 2000 kurt diet. Pt DTV- urinal at bedside. resting
comfortably at present. Will continue to monitor.
--- NOTE | 2025-05-08 16:48 | CM ---
Patient seen at bedside with physician. Pending medical treatment plan home vs SNF. Cm will continue to follow for discharge planning needs.
Plan; home with VN vs SNF
[2025-05-08] MEDS: ROXICODONE 2.5 MG PO (21:46)
[2025-05-08] MEDS: MELATONIN 3 MG PO (21:47)
[2025-05-08] MEDS: LIPITOR 80 MG PO (21:47)
[2025-05-08] MEDS: ELAVIL 25 MG PO (21:47)
[2025-05-09] VITALS (8 sets, daily range): BP systolic 142–162; BP diastolic 71–85; PULSE 60–61; O2SAT 93–94; BMI 35.2
[2025-05-09] MEDS: TYLENOL 1000 MG PO ×4 (00:39→17:18)
[2025-05-09] MEDS: ANCEF 10 IV ×3 (05:44→21:19)
[2025-05-09] MEDS: PROTONIX 40 MG PO (08:05)
[2025-05-09] MEDS: CYMBALTA DELAYED RELEASE 20 MG PO (08:05)
[2025-05-09] MEDS: PROCARDIA XL (EXTENDED RELEASE) 30 MG PO (08:05)
[2025-05-09] MEDS: PEPCID 20 MG PO (08:05)
[2025-05-09] MEDS: NICODERM TRANSDERMAL 14 MG TRANSDERM (08:05)
[2025-05-09] MEDS: REMOVE NICOTINE PATCH 1 PATCH REMOVE (08:05)
[2025-05-09] MEDS: LYRICA 75 MG PO ×3 (08:05→21:20)
[2025-05-09] MEDS: ROXICODONE 2.5 MG PO ×3 (08:16→21:30)
--- NOTE | 2025-05-09 08:23 | PN.CDI ---
CDI
- -
CDI:
Physician Documentation Request
Admit Date: 05/05/25 16:02
Dear Cardiology,
Please review the following and provide your response in the progress notes.
Clinical Indicators:
- 05/05 H&P pmh chronic heart failure, unknown type
- Home medication spironolactone
- 05/08 Cardiology 'NICM, recovered...does not appear to be in acute/decompensated heart failure'
- Last documented Echo 10/06/2022 - EF 55-60%
Please provide further specificity regarding the most likely type and acuity of CHF you are evaluating, treating or monitoring.
Type Acuity
Systolic Acute
Diastolic Chronic
Combined Systolic/Diastolic Acute on Chronic
Other
Use of terms such as suspected, likely, concern for, or probable (associated with a specific diagnosis that is being evaluated, monitored, or treated as if it exists) are acceptable and can be coded in the inpatient setting, when documented at the
time of discharge.
Thank you,
Jermaine Rosenberg RN
CDI Specialist
Please use your independent medical judgment in providing your response.
--- NOTE | 2025-05-09 08:34 | PN.CDI ---
CDI
- -
CDI:
Physician Documentation Request
Admit Date: 05/05/25 16:02
Dear Cardiology,
Please review the following and provide your response in the progress notes.
Clinical Indicators:
05/08 Cardiology 'Trop is stable around 0.045'
- 'Likely related to severe conduction disease and non [place] trop leak'
Laboratory Tests
05/05/25 05/05/25 05/05/25
10:55 14:31 20:26
Troponin I 0.045 H* 0.038 H* 0.040 H*
05/06/25 05/06/25
01:49 07:17
Troponin I 0.042 H* 0.033
Please clarify the following regarding the documented elevated troponins:
Non-ischemic myocardial injury
Abnormal lab value only
Other (please specify)
Use of terms such as suspected, likely, concern for, or probable (associated with a specific diagnosis that is being evaluated, monitored, or treated as if it exists) are acceptable and can be coded in the inpatient setting, when documented at the
time of discharge.
Thank you,
Jermaine Rosenberg RN
CDI Specialist
Please use your independent medical judgment in providing your response.
[2025-05-09 08:48] LABS: Hematocrit 52.1 % (39.0-52.0); Hemoglobin 16.6 g/dL (13.0-18.0); Mean Corp Hgb Conc. 31.9 g/dL (33.0-37.0); Mean Corpuscular Volume 93.9 fL (80.0-94.0); Platelet Count 225 10^3/uL (130-400); Red Cell Dist. Width 14.3 % (11.5-14.5)
[2025-05-09 09:20] LABS: Blood Urea Nitrogen 25 mg/dl (9-20); Calcium 8.3 mg/dl (8.4-10.2); Carbon Dioxide 29 mmol/L (22-30); Chloride 101 mmol/L (98-107); Estimated Creatinine Clearance 69 ml/min; Glucose 96 mg/dl (70-99); Magnesium 2.1 mg/dl (1.6-2.3); Potassium 4.6 mmol/L (3.5-5.1); Sodium 136 mmol/L (135-145); eGFR 58.01
--- NOTE | 2025-05-09 09:44 | W.PN.CD ---
Addendum entered and electronically signed by Cathy Damian MD 05/09/25 09:58:
The heart failure is chronic with preserved ejection fraction.
No sign of acute heart failure noted.
Original Note:
Today's Communication / Plan
-
- Stable for discharge from cardiac stand point.
Impression / Plan
-
I/P: 74M with paroxysmal atrial fibrillation (on amiodarone and apixaban), atrial fibrillation (type unknown), recovered nonischemic cardiomyopathy, hypertension, hypercholesterolemia, bifascicular block, PAD, prior DVT, current smoker, and advanced
COPD who presented with discomfort after a fall.
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 Shah at [facility] ([place])
Bradycardia.
- s/o dual chamber PPM on 05/08/25 - [employer]
- Bifascicular block with Wenckebach at heart rate in 50s and fall
- sinus dysfunction with Significant bradycardia noted.
- Severe conduction disease
- OK to resume Amiodarone for now.
Chest pain
- Right side, behind right breast tissue, worse with palpation, started after mechanical fall
- No exertional symptoms
- Trop is stable around 0.045
- Likely related to severe conduction disease and non DC trop leak.
- Chest pain free now.
- nonischemic myocardial injury in the setting of chest contusion & TIFFANIE
- Peak troponin on presentation, 0.045
- EKG without significant ST abnormality, bifascicular block
NICM, recovered
- He does not appear to be in acute/decompensated heart failure
- Spironolactone on hold with TIFFANIE, now resolved, continue SGLT2i
Hypertension, uncontrolled
- Procardia added by primary service
Paroxysmal atrial fibrillation
Atrial flutter type unknown
- Sinus rhythm with bifascicular block on amiodarone, he was on sotalol in the past
- He reports having a cardiac ablation, he thinks October? at outside facility.
- [facility] ([facility]s, TSH, LFTs, eye exams)
- Oral anticoagulation: Apixaban 5 mg twice daily
LLE cellulitis, per primary, on Ancef
PAD, on atorvastatin, he should stop smoking
Prior DVT, on apixaban for PAF
COPD, no acute exacerbation
Current smoker, full cessation recommended obesity, he would benefit from weight loss
Physical Exam
Vital Signs/Labs
Vital Signs
Temp Pulse Resp BP Pulse Ox
97.2 F 63 18 146/75 95
05/09/25 08:13 05/09/25 08:13 05/09/25 08:13 05/09/25 08:13 05/09/25 08:13
05/08/25 05/09/25 05/10/25
06:59 06:59 06:59
Actual Weight 120.712 kg 121.138 kg
05/09/25 07:30
05/09/25 07:30
Magnesium 2.1 mg/dl (1.6-2.3) 05/09/25 07:30
TSH 1.23 uIU/ml (0.47-4.68) 05/06/25 07:17
Physical Exam
Constitutional: No acute distress and Comfortable
EENT: Anicteric and Moist mucous membranes
Cardiovascular: Rhythm & rate is regular, Pedal edema is absent, JVD pressure is normal and Systolic murmur absent
Respiratory: Respiratory effort normal, Lungs clear to auscul. and Crackles Absent
GI: Soft, Non tender and Normal bowel sounds
Neuro/Psych: Alert, Oriented and AO x 3
Other: Skin (lower ext cellulitis)
Data Reviewed
-
Date of Service: May 09, 2025
Medical Decision Making: Reviewed Test Results, Test Interpretation and Review of Case with other Provider
EKG: Tracing Personally Visualized and interpreted (Telemetry showed A paced rhtyhm. )
X-Ray/CT/US/MRI/NUC/PET: Image Personally Visualized and interpreted
Labs: Labs Reviewed by me
Old Records: Reviewed
--- NOTE | 2025-05-09 11:10 | CM ---
Addendum entered by Nerissa Uriarte 05/09/25 16:44:
auth pending #[id number] clinical information faxed to . Pending auth patient to go to [facility]; report number [phone]/fax [phone]
Original Note:
Patient seen at bedside, patient now requesting SNF, accepted at [facility] will need auth. CM will initiate auth after confirming tentative discharge date. CM will continue to follow for discharge planning needs.
Plan; SNF; [facility] will need confirmation of bed and auth
--- NOTE | 2025-05-09 13:51 | W.PN.HOSP.TC ---
Today's Communication/Plan
-
plan for d/c to SNF in AM?
Assessment / Plan
Assessment / Plan
pt is a 74 year old male
Fall -prior to admission. Unclear etiology (mechanical fall?) but conduction disease may be playing a role according to cardiology--PT/OT rec SNF
Bradycardia--noted on monitor. Amiodarone discontinued. apprec cards--s/p PPM 05/08/25--restart Eliquis as per cards
Mild left lower extremity cellulitis/ulcers in the setting of chronic lower extremity venous stasis dermatitis. Continue cefazolin for now. Convert to Keflex on discharge.
Bilateral lower extremity venous stasis dermatitis -recommend smoking cessation, weight loss. Compression therapy with Keegan wraps. Discussed with patient.Bilateral lower extremity wounds likely venous stasis wounds. Wound care consulted--Patient
had SEAN done October 2022 that was essentially normal in both lower extremities. consider repeating SEAN-- Calcified and soft plaque noted throughout.
TIFFANIE -possibly due to volume depletion. Improved. Spironolactone on hold.
Tobacco dependence -cessation advised.
Transient chest pain -resolved. Troponin elevated on admission but trended down. Patient is a vague historian, unclear timing of chest pain in relation to fall. 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 Cardiology following.
Paroxysmal atrial fibrillation --on amiodarone, Eliquis. Cardiology recommends holding Eliquis tomorrow morning in preparation for pacemaker.
Chronic heart failure unknown type -stable.
Essential hypertension -uncontrolled. Only appears to be on spironolactone for blood pressure. Procardia added with improvement in pressures.
Hyperlipidemia -atorvastatin.
DM 2 without hyperglycemia -only on empagliflozin at home. Continue sliding scale insulin.
COPD without exacerbation -mild wheezing on exam. Continue inhalers.
GERD
Obesity due to excess calories
Full code
Anticipated Discharge: Within 24 hours
Subjective/Interval History
-
Date of Service: May 09, 2025
pt cleared for d/c by cards--therapy rec SNF
Objective Data
-
Labs:
Laboratory Results
05/09/25
07:30
WBC 11.1 H
Hgb 16.6
Hct 52.1 H
Plt Count 225
Sodium 136
Potassium 4.6
Chloride 101
Carbon Dioxide 29
BUN 25 H
Creatinine 1.3
Glucose 96
Calcium 8.3 L
Vital Signs:
max temp for 24 hours
05/08/25
20:45
Temp 97.8 F
Vital Signs
Temp Pulse Resp BP Pulse Ox
97.4 F 64 18 157/76 91
05/09/25 11:21 05/09/25 11:21 05/09/25 11:21 05/09/25 11:21 05/09/25 11:21
I&O
05/08/25 05/09/25 05/10/25
06:59 06:59 06:59
Intake Total 1080 / 1080 960 / 960
Output Total 2445 / 2445 175 / 175
Balance -1365 / -1365 785 / 785
Review of Systems
-
All other systems: Reviewed and negative
Physical Exam
-
General: Well Developed, Well Nourished and Morbidly Obese
HEENT: Normocephalic, Atraumatic and Oxygen
Respiratory: Clear to Auscultation; Negative Wheezes or Crackles
Cardiac: Regular Rhythm, S1/S2 and Other (pacemaker placement with dressings c/d/i); Negative Murmur
GI: Soft, Nontender, Nondistended and Normal Bowel Sounds
Musculoskeletal: No Clubbing, No Cyanosis and No Edema
Neuro: Awake
Psych: Calm
[2025-05-09] MEDS: ELIQUIS 5 MG PO (21:19)
[2025-05-09] MEDS: MELATONIN 3 MG PO (21:20)
[2025-05-09] MEDS: LIPITOR 80 MG PO (21:20)
[2025-05-09] MEDS: ELAVIL 25 MG PO (21:20)
[2025-05-10] MEDS: TYLENOL 1000 MG PO ×3 (00:03→11:51)
[2025-05-10 03:39] VITALS: BP 152/82
[2025-05-10 06:00] VITALS: BMI 35.8
[2025-05-10] MEDS: ANCEF 10 IV ×2 (06:29→15:37)
[2025-05-10 08:00] VITALS: BP 174/86
--- NOTE | 2025-05-10 08:09 | W.PN.CD ---
Today's Communication / Plan
-
- ECHO today
- Transfer to SNF
Impression / Plan
-
I/P: 74M with paroxysmal atrial fibrillation (on amiodarone and apixaban), atrial fibrillation (type unknown), recovered nonischemic cardiomyopathy, hypertension, hypercholesterolemia, bifascicular block, PAD, prior DVT, current smoker, and advanced
COPD who presented with discomfort after a fall.
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
Bradycardia.
- s/o dual chamber PPM on 05/08/25 - [employer]
- Bifascicular block with Wenckebach at heart rate in 50s and fall
- sinus dysfunction with Significant bradycardia noted.
- Severe conduction disease
- OK to resume Amiodarone for now.
- Pt complained of pain on the incision site - new from yesterday.
- The PPM pocket site was inspected. No sing of erythema (More than expected); no fluctuation or hemtaome noted.
- Tylenol prn for pain.
Chest pain
- Right side, behind right breast tissue, worse with palpation, started after mechanical fall
- No exertional symptoms
- Trop is stable around 0.045
- Likely related to severe conduction disease and non [place] trop leak.
- Chest pain free now.
- nonischemic myocardial injury in the setting of chest contusion & TIFFANIE
- Peak troponin on presentation, 0.045
- EKG without significant ST abnormality, bifascicular block
NICM, recovered
- LVEF was checked on bed side ECHO. Will repeat full ECHO today before his transfer to [facility]
- He does not appear to be in acute/decompensated heart failure
- Spironolactone on hold with TIFAFNIE, now resolved, continue SGLT2i
Hypertension, uncontrolled
- Procardia added by primary service
Paroxysmal atrial fibrillation
Atrial flutter type unknown
- Sinus rhythm with bifascicular block on amiodarone, he was on sotalol in the past
- He reports having a cardiac ablation, he thinks October? at outside facility.
- [facility] ([facility]s, TSH, LFTs, eye exams)
- Oral anticoagulation: Apixaban 5 mg twice daily
LLE cellulitis, per primary, on Ancef
PAD, on atorvastatin, he should stop smoking
Prior DVT, on apixaban for PAF
COPD, no acute exacerbation
Current smoker, full cessation recommended obesity, he would benefit from weight loss
Physical Exam
Vital Signs/Labs
Vital Signs
Temp Pulse Resp BP Pulse Ox
97.5 F 61 18 152/82 94
05/10/25 03:39 05/10/25 03:39 05/10/25 03:39 05/10/25 03:39 05/10/25 03:39
05/09/25 05/10/25 05/11/25
06:59 06:59 06:59
Actual Weight 121.138 kg 122.952 kg
Magnesium 2.1 mg/dl (1.6-2.3) 05/09/25 07:30
TSH 1.23 uIU/ml (0.47-4.68) 05/06/25 07:17
Physical Exam
Constitutional: No acute distress and Comfortable
EENT: Anicteric and Moist mucous membranes
Cardiovascular: Rhythm & rate is regular, Pedal edema is absent and JVD pressure is normal
Respiratory: Respiratory effort normal, Lungs clear to auscul., Wheeze Absent and Crackles Absent
GI: Soft, Distention absent, Non tender and Normal bowel sounds
Neuro/Psych: Alert, Oriented, AO x 3 and Motor deficits absent
Other: Cardiac Device Site
Data Reviewed
-
Date of Service: May 10, 2025
Medical Decision Making: Reviewed Test Results, Test Interpretation and Review of Case with other Provider
EKG: Tracing Personally Visualized and interpreted
Echo: Report Reviewed by me
X-Ray/CT/US/MRI/NUC/PET: Image Personally Visualized and interpreted
Labs: Labs Reviewed by me
Old Records: Reviewed
[2025-05-10 08:13] LABS: Hematocrit 53.0 % (39.0-52.0); Hemoglobin 17.0 g/dL (13.0-18.0); Mean Corp Hgb Conc. 32.1 g/dL (33.0-37.0); Mean Corpuscular Volume 95.5 fL (80.0-94.0); Platelet Count 208 10^3/uL (130-400); Red Cell Dist. Width 14.0 % (11.5-14.5)
[2025-05-10] MEDS: REMOVE NICOTINE PATCH 1 PATCH REMOVE (08:21)
[2025-05-10] MEDS: ELIQUIS 5 MG PO (08:21)
[2025-05-10] MEDS: PROCARDIA XL (EXTENDED RELEASE) 30 MG PO (08:21)
[2025-05-10] MEDS: PACERONE 200 MG PO (08:21)
[2025-05-10] MEDS: CYMBALTA DELAYED RELEASE 20 MG PO (08:21)
[2025-05-10] MEDS: PROTONIX 40 MG PO (08:21)
[2025-05-10] MEDS: NICODERM TRANSDERMAL 14 MG TRANSDERM (08:21)
[2025-05-10] MEDS: LYRICA 75 MG PO ×2 (08:21→15:23)
[2025-05-10] MEDS: PEPCID 20 MG PO (08:21)
[2025-05-10] MEDS: ROXICODONE 2.5 MG PO ×2 (08:25→15:22)
[2025-05-10 09:06] LABS: Blood Urea Nitrogen 25 mg/dl (9-20); Calcium 8.5 mg/dl (8.4-10.2); Carbon Dioxide 29 mmol/L (22-30); Chloride 102 mmol/L (98-107); Estimated Creatinine Clearance 75 ml/min; Glucose 100 mg/dl (70-99); Magnesium 2.1 mg/dl (1.6-2.3); Potassium 4.6 mmol/L (3.5-5.1); Sodium 136 mmol/L (135-145); eGFR > 60.00
--- NOTE | 2025-05-10 10:08 | CARDSERVLU ---
Echocardiogram with [facility] completed after protocol screening completed. Allergies verified.
Patent IV site: __Rt AC___
IV site flushed with 0.9% NaCl pre and post administration.
Diluted bolus method utilized to enhance visualization of ventricular haddad.
Total volume given: __4.5__ mL
Patient tolerated all procedures well without complications.
[2025-05-10 11:00] VITALS: BP 150/70
--- NOTE | 2025-05-10 12:52 | CM ---
Addendum entered by Nerissa Uriarte 05/10/25 14:35:
5pm ambulance transportation, forms provided to ammunition components inspector.
Original Note:
Patient auth recieved from [facility] at [facility]; #[id number] and UR nurse is Sybil Guzman; fax [phone]. CM called to Ania at [facility] and confirmed report number [phone]/fax [phone]. and provided auth update.
CM will confirm discharge information and transportation forms. CM will continue to follow for discharge planning needs.
Plan; transfer to [facility]
--- NOTE | 2025-05-10 14:18 | W.PN.HOSP.TC ---
Today's Communication/Plan
-
d/c
Assessment / Plan
Assessment / Plan
pt is a 74 year old male
OK for d/c
Fall--prior to admission. Unclear etiology (mechanical fall?) but conduction disease may be playing a role according to cardiology--PT/OT rec SNF
Bradycardia--noted on monitor. Amiodarone discontinued. apprec cards--s/p PPM 05/08/25--restart Eliquis as per cards
Mild left lower extremity cellulitis/ulcers in the setting of chronic lower extremity venous stasis dermatitis. Continue cefazolin for now. Convert to Keflex on discharge.
Bilateral lower extremity venous stasis dermatitis -recommend smoking cessation, weight loss. Compression therapy with Keegan wraps. Discussed with patient.Bilateral lower extremity wounds likely venous stasis wounds. Wound care consulted--Patient
had SEAN done October 2022 that was essentially normal in both lower extremities. consider repeating SEAN-- Calcified and soft plaque noted throughout.
TIFFANIE -possibly due to volume depletion. Improved. Spironolactone on hold.
Tobacco dependence -cessation advised.
Transient chest pain -resolved. Troponin elevated on admission but trended down. Patient is a vague historian, unclear timing of chest pain in relation to fall. 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 Cardiology following.
Paroxysmal atrial fibrillation --on amiodarone, Eliquis. Cardiology recommends holding Eliquis tomorrow morning in preparation for pacemaker.
Chronic heart failure unknown type -stable.
Essential hypertension -uncontrolled. Only appears to be on spironolactone for blood pressure. Procardia added with improvement in pressures.
Hyperlipidemia -atorvastatin.
DM 2 without hyperglycemia -only on empagliflozin at home. Continue sliding scale insulin.
COPD without exacerbation -mild wheezing on exam. Continue inhalers.
GERD
Obesity due to excess calories
Full code
Anticipated Discharge: Today
Subjective/Interval History
-
Date of Service: May 10, 2025
pt without c/o
Objective Data
-
Labs:
Laboratory Results
05/10/25
07:42
WBC 8.8
Hgb 17.0
Hct 53.0 H
Plt Count 208
Sodium 136
Potassium 4.6
Chloride 102
Carbon Dioxide 29
BUN 25 H
Creatinine 1.2
Glucose 100 H
Calcium 8.5
Vital Signs:
max temp for 24 hours
05/09/25
23:14
Temp 97.7 F
Vital Signs
Temp Pulse Resp BP Pulse Ox
97.8 F 61 16 150/70 90
05/10/25 11:00 05/10/25 11:00 05/10/25 11:00 05/10/25 11:00 05/10/25 11:00
I&O
05/09/25 05/10/25 05/11/25
06:59 06:59 06:59
Intake Total 960 / 960 1440 / 1440 480 / 480
Output Total 175 / 175 500 / 500
Balance 785 / 785 940 / 940 480 / 480
Review of Systems
-
All other systems: Reviewed and negative
Physical Exam
-
General: Well Developed, Well Nourished, No Apparent Distress and Morbidly Obese
HEENT: Normocephalic and Atraumatic; Negative Oxygen
Respiratory: Clear to Auscultation
Cardiac: Regular Rhythm and S1/S2; Negative Murmur
GI: Soft, Nontender, Nondistended and Normal Bowel Sounds
Musculoskeletal: No Clubbing, No Cyanosis and No Edema
Neuro: Awake
[2025-05-10 15:00] VITALS: BP 166/78
[2025-05-10] MEDS: FLUZONE HIGH-DOSE 2025-26 0.5 ML IM (15:36)
--- NOTE | 2025-05-11 07:18 | W.DCSUMMARY ---
Discharge Summary
Discharge Data
Date of Admission: 05/05/25
Date of Discharge: 05/10/25
-
Pending Results: No
Hospital Course
Primary care physician : Mariah Langley
Principal Discharge diagnosis : Bradycardia with heart block requiring pacemaker, fall, left lower extremity cellulitis/ulcers
Chronic Discharge diagnosis : Chronic lower extremity venous stasis dermatitis, paroxysmal atrial fibrillation, chronic heart failure unknown type without exacerbation, essential hypertension, hyperlipidemia, chronic obstructive pulmonary disease
without exacerbation, gastroesophageal reflux disease, obesity
Hospital Course : Patient is a 74-year-old male who presented after a fall and had left lower extremity pain. He reported he consumed a large amount of alcohol and as a result of intoxication he tripped over his walker. Patient takes Eliquis for
A-fib and had a bruise starting to form on his left upper chest. Patient was found to have high grade heart block and was admitted.
Problem #1: Bradycardia with heart block requiring pacemaker. Patient was seen in consultation by cardiology. He was found to have bifascicular block with Wenkebach and a heart rate of the 50s along with a fall. Dual-chamber pacemaker was placed
on May 08, 2025. Amiodarone Eliquis were continued.
Problem #2: Fall. This was thought to be mechanical from intoxication and tripping over his walker however, cardiology felt that underlying conduction disease could be playing a role. Physical therapy and Occupational Therapy were consulted and
they recommend fpc facility. Patient is agreeable to this plan.
Problem #3: Left lower extremity cellulitis/ulcers. Patient was started on ceftriaxone and wound care was consulted. He had arterial brachial indices done in October 2022 that was essentially normal. He has ulcers that are well circumscribed and
thought to be due to his fall. Compression therapy with Keegan wrap was continued. He could potentially have repeat ABIs done if healing is not progressing. He was switched to cephalexin at discharge to complete a course.
Problem #4: All other medical issues. These include Chronic lower extremity venous stasis dermatitis, paroxysmal atrial fibrillation, chronic heart failure unknown type without exacerbation, essential hypertension, hyperlipidemia, chronic
obstructive pulmonary disease without exacerbation, gastroesophageal reflux disease, obesity. In regards to documented type 2 diabetes mellitus in the notes and on the history and physical, patient denies having any diabetes. He is on Jardiance
but this is likely due to to his heart failure/kidney issues.
Patient is stable to go to a fpc facility at this time. If there are any questions regarding this dictation or his hospital stay, please do not hesitate to call. Our office number is [phone].
Discharge Plan
-
Patient Disposition: Group Home/SNF
Discharge Diagnosis/Procedures: Heart block, s/p pacemaker implant, left lower extremity cellulitis with chronic ulcers, bilateral lower extremity venous stasis dermatitis, acute kidney injury resolved, chest pain resolved, paroxysmal atrial
fibrillation, chronic heart failure unknown type, essential hypertension, hyperlipidemia, chronic obstructive pulmonary disease
Condition: Good
Diet: 2 Gram Sodium
Activity: As tolerated
Additional Activity: Do not push-up with left arm as recent procedure with pacemaker implant
Driving Restrictions: No driving for 1 week
Bathing Restrictions: None
Activity Restrictions/Additional Instructions:
Wound Care Instructions
LE wounds-clean with saline or Vashe wound cleanser, silicone border foam, change q 3 days and prn loosened dressing (add adaptic/alginate prn large amount of drainage).
Bilateral knee high Keegan wraps as tolerated; re-wrap daily.
Elevate Le's frequently.
Elevate heels off bed with pillow/s.
Follow up at wound care center call for an appointment.
Stand Alone Forms: DC Inst - Implanted Device
Referrals:
Chelo Eason CRNP [Specified Professional Personl, Cardiology] - 05/17/25 1:40 pm
Referral Note: Post device incision check appointment
Mariah Langley CRNP [Family Provider, General] - in less than 1 week
Prescriptions:
New
nifedipine 30 mg Tablet Extended Release
30 mg PO DAILY Qty: 0 0RF
oxycodone 5 mg Tablet
2.5 mg PO Q6HPRN PRN (Reason: SEVERE LEG PAIN) Qty: 10 0RF
cephalexin 500 mg capsule
500 mg PO TID 5 Days Qty: 15 0RF
pregabalin 75 mg Capsule
75 mg PO TID Qty: 10 0RF
Continued
magnesium oxide 400 mg (241.3 mg magnesium) Tablet
420 mg PO DAILY
pregabalin 75 mg Capsule
75 mg PO TID
Eliquis 5 mg Tablet
5 mg PO BID
amitriptyline 25 mg Tablet
25 mg PO HS
atorvastatin 80 mg Tablet
80 mg PO HS
spironolactone 25 mg Tablet
25 mg PO DAILY
famotidine 20 mg Tablet
20 mg PO DAILY
acetaminophen [Tylenol Extra Strength] 500 mg Tablet
1,000 mg PO Q6H PRN (Reason: mild pain)
albuterol sulfate 90 mcg/actuation Hfa Aerosol Inhaler
2 puff INHALATION Q4HPRN PRN (Reason: shortness of breath)
Artificial Tears (PF) Dropperette
1 drp BOTH EYES QIDPRN PRN (Reason: dry eye)
duloxetine 20 mg Capsule,Delayed Release(Dr/Ec)
20 mg PO DAILY
empagliflozin 25 mg Tablet
12.5 mg PO DAILY
pantoprazole 40 mg tablet,delayed release (DR/EC)
40 mg PO DAILY
amiodarone 200 mg tablet
200 mg PO DAILY
Discharge Orders:
Discharge Patient (As Directed); Ordered 05/10/25
Ordered By: Amarilis Mendoza
Discharge Date and Time
Discharge Date/Time: 05/10/25 17:10
Print Language: [id number]
== END 2025-05-10 17:10 | DRG 243 ==
LOC: 4 EAST ACU 16:02
PROVIDERS: Nurse Practitioner; Nurse Practitioner Gerontology; Physician Assistant Medical; ADMITTING PHYSICIAN Hospitalist; ATTENDING PHYSICIAN Internal Medicine; CONSULT PHYSICIAN Internal Medicine Cardiovascular Disease; EMERGENCY PHYSICIAN Emergency Medicine; FAMILY PHYSICIAN Nurse Practitioner
PROC: 0JH606Z Insertion of Pacemaker, Dual Chamber into Chest Subcutaneous Tissue and Fascia, Open Approach (ICD-10-PCS; 2025-05-08)
PROC: 02H73JZ Insertion of Pacemaker Lead into Left Atrium, Percutaneous Approach (ICD-10-PCS; 2025-05-08)
PROC: 02HK3JZ Insertion of Pacemaker Lead into Right Ventricle, Percutaneous Approach (ICD-10-PCS; 2025-05-08)
DX: I44.2 Atrioventricular block, complete (principal); I50.32 Chronic diastolic (congestive) heart failure; I5A Non-ischemic myocardial injury (non-traumatic); L03.116 Cellulitis of left lower limb; N17.9 Acute kidney failure, unspecified; F17.210 Nicotine dependence, cigarettes, uncomplicated; I48.0 Paroxysmal atrial fibrillation; I11.0 Hypertensive heart disease with heart failure; J44.9 Chronic obstructive pulmonary disease, unspecified; K21.9 Gastro-esophageal reflux disease without esophagitis; E66.09 Other obesity due to excess calories; E11.42 Type 2 diabetes mellitus with diabetic polyneuropathy; Z79.01 Long term (current) use of anticoagulants; Z79.899 Other long term (current) drug therapy; Z91.85 Personal history of military service; Z68.35 Body mass index [BMI] 35.0-35.9, adult
CPT/HCPCS: 33208; 71045; 71046; 73564; 73590; 80048; 80053; 82962; 83036; 83735; 84443; 84484; 85025; 85027; 90662; 93005; 93306; 93971; 94640; 96374; 97116; 97163; 97167; 97535; 99285; 99406; C1785; C1887; C1898; G0008; Q9950

== ENCOUNTER → 2025-05-15 09:36 | Outpatient (REF) | payer OTHER, MEDICARE, SELFPAY ==
[2025-05-15 11:21] LABS: Hematocrit 50.5 % (39.0-52.0); Hemoglobin 16.5 g/dL (13.0-18.0); Mean Corp Hgb Conc. 32.7 g/dL (33.0-37.0); Mean Corpuscular Volume 91.2 fL (80.0-94.0); Platelet Count 207 10^3/uL (130-400); Red Cell Dist. Width 14.1 % (11.5-14.5)
[2025-05-15 11:52] LABS: ALT (SGPT) 25 U/L (0-50); AST (SGOT) 27 U/L (17-59); Albumin 3.7 g/dl (3.5-5.0); Alkaline Phosphatase 135 U/L (38-126); Blood Urea Nitrogen 25 mg/dl (9-20); Calcium 8.4 mg/dl (8.4-10.2); Carbon Dioxide 25 mmol/L (22-30); Chloride 105 mmol/L (98-107); Glucose 101 mg/dl (70-99); Magnesium 2.1 mg/dl (1.6-2.3); Potassium 4.6 mmol/L (3.5-5.1); Sodium 138 mmol/L (135-145); Total Protein 7.2 g/dl (6.3-8.2); eGFR > 60.00
== END ==
LOC: OLABWHC 09:36
PROVIDERS: ATTENDING PHYSICIAN Family Medicine
DX: I10 Essential (primary) hypertension (principal)
CPT/HCPCS: 36415; 80053; 83735; 85027